=== PATIENT | female | born 1945 | race Caucasian/White ===

== ENCOUNTER 2023-01-10 14:34 | Emergency (ER) | payer MEDICARE, SELFPAY ==
--- NOTE | 2023-01-10 14:38 | ED_ITS ---
HPI - Abdominal Pain General Stated Complaint: ABD PAIN Time Seen by Provider: 01/10/23 15:00 Source: patient and RN notes reviewed Mode of arrival: ambulatory Limitations: no limitations History of Present Illness HPI narrative: 77-year-old presents with concern for bilateral lower abdominal pain that started suddenly yesterday. She reports normal bowel movements, she last had a bowel movement today. She denies nausea or vomiting. She denies fever. Denies dysuria, frequency, urgency. Reports history of diverticulitis MD elicited complaint: abdominal pain Related Data Home Medications Medication Instructions Recorded Confirmed No Home Medications 01/10/23 01/10/23 Allergies Allergy/AdvReac Type Severity Reaction Status Date / Time No Known Allergies Allergy Verified 01/10/23 15:01 Review of Systems Review of Systems: CONSTITUTIONAL: Denies malaise, chills, sweats, or fever. ENT: Denies rhinorrhea, congestion, sinus pain, otalgia or sore throat. CARDIOVASCULAR: Denies chest pain, palpitations, or edema. RESPIRATORY: Denies cough or dyspnea. GASTROINTESTINAL: Reports bilateral lower abdominal pain. Nausea, vomiting, diarrhea, bloody, or mucous stools. GENITOURINARY: Denies dysuria or hematuria. MUSCULOSKELETAL: Denies myalgia. NEUROLOGIC: Denies headache. All systems reviewed & are unremarkable except as noted in HPI and below PMFSH Comments At time of signature, agree with nursing past medical, surgical, social and family history. There is no relevant family history pertinent to the presenting complaint Exam Narrative: GENERAL: Well-appearing, well-nourished, and in no acute distress. HEAD: Normocephalic, atraumatic. EYES: PERRLA, conjunctivae clear, and EOMI. ENT: Nares clear. Mucous membranes moist. NECK: Supple. No lymphadenopathy CHEST: Speaks in full sentences. No respiratory distress. HEART: Regular rate and rhythm. ABDOMEN: Soft, flat, nondistended. Bilateral lower abdominal tenderness. no guarding, rebound tenderness, or rigidity. No pulsatile masses. Bowel sounds present in all four quadrants. No organomegaly. Periumbilical tenderness. Supra public tenderness, no distension. SKIN: Warm, dry, no rash. NEURO: Alert and oriented x3. PSYCH: Normal mood and affect Course Course Emergency Course: Patient is aware of, understands and agrees to be transferred to emergency department. Patient agrees to proceed directly to the emergency department. Portions of this record may have been created with voice recognition software Level of Care: Express Care Visit Vital Signs Vital signs: Reviewed. Transfer Transfered to: [place] Transportation: Other (Private vehicle) Transfer rationale: Abdominal pain Accepting physician: Delfina Transfer comments: Stable for transfer via private vehicle MDM - Abdominal Pain MDM Narrative Medical decision making narrative: Exam findings warrant further evaluation emergency department; patient is non- toxic appearing and is in no distress. Critical Care Time Critical Care Time Critical Care Time: No Discharge Plan Discharge Clinical Impression: Abdominal pain Patient Disposition: Acute Care Hospital Condition: Stable Follow-up/Referrals: PHYSICIAN,BRAKE REPAIR SUPERVISOR [Primary Care Provider] - Time of Disposition: 15:41
[2023-01-10 14:48] VITALS: BP 130/89; PULSE 104; RESP 16; TEMP 37.3; O2SAT 98
== END 2023-01-10 15:48 | disposition short-term general hospital (02) ==
PROVIDERS: Emergency Provider Nurse Practitioner
DX: R10.31 Right lower quadrant pain (principal); R10.32 Left lower quadrant pain
CPT/HCPCS: 81003; 99212; G0463

== ENCOUNTER 2023-01-10 16:09 | Emergency (ER) | payer MEDICARE, SELFPAY ==
--- NOTE | ~2023-01-10 | CT_ITS ---
EXAMINATION: CT abdomen pelvis w con DATE: 01/10/2023 19:22 INDICATION: Lower abdominal pain TECHNIQUE: Computed tomography (CT) of the abdomen and pelvis was performed with 100 cc Omnipaque 350 intravenous contrast. The dose-length product was 230.96 mGy-cm. Automated exposure control and iter ative reconstruction technique were employed. COMPARISON: None. FINDINGS: Lung bases are unremarkable. Heart size normal. No significant pleural or pericardial effus ion. Small hiatal hernia. Fatty infiltration of the liver. Gallbladder is present. The spleen, pancre as, adrenal glands and kidneys are unremarkable. No significant vascular abnormality. Colonic there i s thickening of the proximal sigmoid colon. There is mild surrounding inflammation, suspicious for ac [place] diverticulitis. Underlying mass cannot be excluded. Trace free fluid in the pelvis. Bladder is un remarkable. There is moderate lower thoracic and upper lumbar spondylosis. IMPRESSION: 1. Thickened proximal sigmoid colon with areas of decreased density and mild surrounding pericolonic inflammation, consistent with acute diverticulitis. Cannot exclude underlying mass.. Reviewed, dictated and finalized at location A. IMPRESSION: 1. Thickened proximal sigmoid colon with areas of decreased density and mild barlow rrounding pericolonic inflammation, consistent with acute diverticulitis. Canno t exclude underlying mass..
[2023-01-10 16:31] VITALS: BP 142/67; PULSE 98; RESP 16; O2SAT 99
[2023-01-10 16:46] LABS: Basophils Absolute Auto 0.1 K/mm3 (0.0-0.1); Basophils Percent Auto 0.5 % (0.2-1.2); Eosinophils Percent Auto 0.1 % (0-4.4); Hematocrit 44.2 % (37.0-47.0); Hemoglobin 14.6 g/dL (12.0-15.0); Immature Granulocyte Absolute 0.05 K/mm3 (0.00-0.031); Immature Granulocyte Percent A 0.3 % (0-0.5); Lymphocytes Absolute Auto 1.41 K/mm3 (0.9-3.2); Lymphocytes Percent Auto 9.7 % (18.3-44.2); Mean Corpuscular Volume 87.7 fl (80-100); Mean Platelet Volume 10.9 fl (7.4-10.4); Monocytes Absolute Auto 0.8 K/mm3 (0.1-0.6); Monocytes Percent Auto 5.4 % (2.6-8.5); Neutrophils Absolute Auto 12.2 K/mm3 (1.3-6.7); Platelet Count Result 240 k/mm3 (150-375); Red Blood Count 5.04 M/mm3 (4.2-5.4); Red Cell Distribution Width 13.3 % (11.5-14.5); White Blood Count 14.6 K/mm3 (4.5-10.0)
[2023-01-10 16:49] LABS: Appearance Urine Clear (Clear); Bilirubin Urine Negative (Negative); Blood Urine Negative (Negative); Color Urine Yellow (Yellow); Glucose Urine UA Negative (Negative); Ketones Urine Negative (Negative); Leukocyte Esterase Ur Negative LEU/UL (Negative); Nitrate Urine Negative (Negative); Protein Urine Negative (Negative); Specific Grav Ur 1.002 (1.001-1.035); Urobilinogen Urine 0.2 mg/dL (<2.0)
[2023-01-10 16:52] LABS: Add Urine Microscopic? NO
[2023-01-10 16:54] LABS: Alanine Aminotransferase 23 U/L (6-35); Albumin Level 4.3 g/dL (3.5-5.1); Alkaline Phosphatase 114 U/L (38-126); Anion Gap 9 mmol/L (8-16); Aspartate Amino Transferase 29 U/L (14-36); Bilirubin,Total 1.2 mg/dL (0.2-1.3); Blood Urea Nitrogen 11 mg/dL (7-17); Calcium 8.8 mg/dL (8.4-10.2); Carbon Dioxide 26 mmol/L (22-30); Chloride 98 mmol/L (98-107); Estimated CRCL calculation 42 ml/min; Estimated Glomerular Filt Rate > 60; Glucose 113 mg/dL (65-110); Lipase 73 U/L (23-300); Potassium 3.9 mmol/L (3.4-5.0); Sodium 133 mmol/L (137-145)
[2023-01-10 18:33] VITALS: BP 119/68; PULSE 79; RESP 15; O2SAT 99
--- NOTE | 2023-01-10 19:07 | ED.GENADULT ---
HPI - General Adult General Chief complaint: Abdominal Pain Stated complaint: abd pain Time Seen by Provider: 01/10/23 18:39 History of Present Illness HPI narrative: 77-year-old healthy female with a history of diverticulitis here for evaluation of lower abdominal pain over the past day and a half. Patient states that the pain is present in her left lower quadrant and her right lower quadrant. No diarrhea, constipation, nausea, vomiting, fevers, chills, blood in her stools, dysuria, blood in her urine. She is never had a pain like this in the past. She is unsure her quality of the pain. Has not taken any medicine for the pain. She believes she pulled a muscle because she was picking up her grandkids. Currently pain-free. Related Data Allergies Allergy/AdvReac Type Severity Reaction Status Date / Time No Known Allergies Allergy Verified 01/10/23 15:01 Review of Systems Review of Systems: Gen: Denies fevers or chills Eyes: Denies eye pain or visual change ENT: Denies congestion Respiratory: Denies shortness of breath or cough CV: Denies chest pain or palpitations GI: Reports abdominal pain. Denies nausea, emesis or diarrhea : denies burning, urgency, frequency or hematuria Musculoskeletal: Denies back pain or muscle pain Neuro: Denies numbness, tingling, weakness or focal weakness Skin: Denies rash Except as documented, all other systems reviewed and negative Exam Narrative: APPEARANCE: Well appearing, no pain in distress, well-nourished. Head: Normocephalic and atraumatic. EYES: PERRLA/EOMI, conjunctivae clear NOSE: No nasal drainage EARS: External ear normal in appearance THROAT: Oropharynx is clear. Mucous membranes are moist. NECK: Supple. No adenopathy, no masses. RESPIRATORY: Airway patent, respirations nonlabored. Clear to auscultation bilaterally, no rales, rhonchi, wheezing. CARDIOVASCULAR: Regular rate and rhythm without murmurs, rubs, or gallops. ABDOMINAL: Normoactive bowel sounds. Soft, nontender, nondistended. No rebound tenderness or guarding. MUSCULOSKELETAL: Extremities are warm and well-perfused. Moves all extremities well. No edema. NEURO: Normal speech. No focal neurologic deficits. SKIN: Skin is warm and dry. No rashes. PSYCHIATRIC: Normal affect/mood. Course Vital Signs Vital signs: Vital Signs Pulse Rate 98 01/10/23 16:31 Respiratory Rate 16 01/10/23 16:31 Blood Pressure 142/67 H 01/10/23 16:31 Pulse Oximetry 99 01/10/23 16:31 Oxygen Delivery Room Air 01/10/23 16:31 Pulse Rate 79 01/10/23 18:33 Respiratory Rate 15 01/10/23 18:33 Blood Pressure 119/68 01/10/23 18:33 Pulse Oximetry 99 01/10/23 18:33 Oxygen Delivery Room Air 01/10/23 16:31 Medical Decision Making MDM Narrative Medical decision making narrative: 77-year-old female here for evaluation of lower abdominal pain for the past several days. Patient is nontoxic in appearance and has normal vital signs. No significant abdominal tenderness on exam. She has normal labs. CT with evidence of uncomplicated diverticulitis which would explain her pain, although commenting that they cannot exclude underlying mass. Patient was informed of these findings and need for GI follow-up; understands she will need a colonoscopy for further evaluation. We will send home with antibiotics and clear liquid diet. We discussed return precautions and she voiced understanding. Vital Signs Vital Signs: Vital Signs Pulse Rate 98 01/10/23 16:31 Respiratory Rate 16 01/10/23 16:31 Blood Pressure 142/67 H 01/10/23 16:31 Pulse Oximetry 99 01/10/23 16:31 Oxygen Delivery Room Air 01/10/23 16:31 Pulse Rate 79 01/10/23 18:33 Respiratory Rate 15 01/10/23 18:33 Blood Pressure 119/68 01/10/23 18:33 Pulse Oximetry 99 01/10/23 18:33 Oxygen Delivery Room Air 01/10/23 16:31 Lab Data 01/10/23 16:39 01/10/23 16:39 Labs: Lab Results 01/10/23 01/10/23 0
[2023-01-10 19:20] LABS: Lactic Acid Reflex 1.4 mmol/L (0.7-2.0)
== END 2023-01-10 20:10 | disposition home or self-care (01) ==
PROVIDERS: Emergency Medicine; Emergency Provider Physician Assistant
DX: K57.32 Diverticulitis of large intestine without perforation or abscess without bleeding (principal)
CPT/HCPCS: 36415; 74177; 80053; 81003; 83605; 83690; 85025; 99284; Q9967

== ENCOUNTER → 2023-02-02 08:26 | Outpatient (CLI) | payer MEDICARE, SELFPAY ==
--- NOTE | ~2023-02-02 | US_ITS ---
EXAMINATION: US carotid duplex BI DATE: 02/02/2023 08:43 INDICATION: Carotid stenosis TECHNIQUE: Grayscale, color Doppler, and pulsed Doppler images of the cervical carotid arteries were obtained. The degree of vessel stenosis is placed in one of the following categories: normal, <50%, 5 0-69%, >=70% but less than near-occlusion, near-occlusion, or total occlusion. Note that percent sten osis relative to normal distal artery lumen diameter is indirectly measured from velocity measurement s as described by Ender, et al. Radiology 2003; 229:340-346. Notes: Normal: Peak systolic velocity <125 centimeters/sec and no plaque <50%. Peak systolic velocity <125 ( EDV <40; ICA/CCA PSV ratio <2.0; used these factors only a tandem lesions or low cardiac output or co ntralateral disease) 50-69 %: PSV 125-230 (EDV 40-100; ratio 2-4) >= 70% but less than near occlusion: PSV greater than 230 (EDV > 100; ratio> 4.0) Near Occlusion: PSV that is variable; markedly narrowed lumen Occlusion: Absent flow on color/spectral Doppler and no lumen on tolbert scale. COMPARISON: None. FINDINGS: RIGHT: The right common carotid artery (CCA) peak systolic velocity (PSV) is 76 cm/s. The right internal car otid artery (ICA) PSV is 94 cm/s. The right ICA end-diastolic velocity (EDV) is 20 cm/s. The right IC A/CCA PSV ratio is 1.2. The external carotid artery (ECA) PSV is 90 cm/s. There is antegrade flow in the right vertebral artery. LEFT: The left CCA PSV is 104 cm/s. The left ICA PSV is 102 cm/s. The left ICA EDV is 20 cm/s. The left ICA /CCA PSV ratio is 1.0. The ECA PSV is 78 cm/s. There is antegrade flow in the left vertebral artery. IMPRESSION: 1. Less than 50% stenosis in the right internal carotid artery by sonographic criteria. 2. Less than 50% stenosis in the left internal carotid artery by sonographic criteria. Reviewed, dictated and finalized at location L. IMPRESSION: 1. Less than 50% stenosis in the right internal carotid artery by sonographic [place]. 2. Less than 50% stenosis in the left internal carotid artery by sonographic lino quiroz.
== END ==
PROVIDERS: PCP Internal Medicine; Visit Provider Clinical Nurse Specialist
DX: I65.23 Occlusion and stenosis of bilateral carotid arteries (principal); R09.89 Other specified symptoms and signs involving the circulatory and respiratory systems
CPT/HCPCS: 93880

== ENCOUNTER 2023-02-02 08:42 | Outpatient (CLI) | payer MEDICARE, SELFPAY ==
[2023-02-02 19:33] LABS: Alanine Aminotransferase 23 U/L (6-35); Albumin Level 4.2 g/dL (3.5-5.1); Alkaline Phosphatase 129 U/L (38-126); Anion Gap 5 mmol/L (8-16); Aspartate Amino Transferase 39 U/L (14-36); Bilirubin,Total 0.4 mg/dL (0.2-1.3); Blood Urea Nitrogen 20 mg/dL (7-17); Calcium 8.9 mg/dL (8.4-10.2); Carbon Dioxide 29 mmol/L (22-30); Chloride 104 mmol/L (98-107); Cholesterol 287 mg/dL (0-200); Estimated Glomerular Filt Rate > 60; Glucose 81 mg/dL (65-110); HDL Direct 46 mg/dL; Potassium 4.4 mmol/L (3.4-5.0); Sodium 138 mmol/L (137-145); Triglycerides 180 mg/dL (<150)
[2023-02-02 19:34] LABS: Basophils Absolute Auto 0.1 K/mm3 (0.0-0.1); Basophils Percent Auto 1.4 % (0.2-1.2); Eosinophils Absolute Auto 0.1 K/mm3 (0-0.3); Eosinophils Percent Auto 1.8 % (0-4.4); Hematocrit 45.5 % (37.0-47.0); Hemoglobin 14.7 g/dL (12.0-15.0); Immature Granulocyte Absolute 0.01 K/mm3 (0.00-0.031); Immature Granulocyte Percent A 0.2 % (0-0.5); Lymphocytes Absolute Auto 2.55 K/mm3 (0.9-3.2); Lymphocytes Percent Auto 40.7 % (18.3-44.2); Mean Corpuscular HGB Conc 32.3 g/dl (32-36); Mean Corpuscular Hemoglobin 28.4 pg (26-34); Mean Platelet Volume 12.5 fl (7.4-10.4); Monocytes Absolute Auto 0.5 K/mm3 (0.1-0.6); Monocytes Percent Auto 8.5 % (2.6-8.5); Neutrophils Percent Auto 47.4 % (45.5-73.1); Platelet Count Result 259 k/mm3 (150-375); Red Blood Count 5.17 M/mm3 (4.2-5.4); Red Cell Distribution Width 13.4 % (11.5-14.5); White Blood Count 6.3 K/mm3 (4.5-10.0)
[2023-02-02 19:44] LABS: LDL Cholesterol Direct 201 mg/dL
[2023-02-02 21:39] LABS: Hemoglobin A1C 5.8 % (<5.7)
== END 2023-02-02 08:43 | disposition home or self-care (01) ==
LOC: ANHGOSHLAB 08:43
PROVIDERS: PCP Internal Medicine; Visit Provider Clinical Nurse Specialist
DX: E78.5 Hyperlipidemia, unspecified (principal); Z13.228 Encounter for screening for other metabolic disorders; R73.9 Hyperglycemia, unspecified; R41.3 Other amnesia
CPT/HCPCS: 36415; 80053; 80061; 82607; 83036; 84443; 85025

== ENCOUNTER 2023-04-28 10:43 | Outpatient (CLI) | payer MEDICARE, SELFPAY ==
[2023-04-28 14:40] LABS: Alanine Aminotransferase 26 U/L (6-35); Albumin Level 4.1 g/dL (3.5-5.1); Alkaline Phosphatase 94 U/L (38-126); Anion Gap 4 mmol/L (8-16); Aspartate Amino Transferase 53 U/L (14-36); Bilirubin,Total 0.8 mg/dL (0.2-1.3); Blood Urea Nitrogen 10 mg/dL (7-17); Calcium 9.1 mg/dL (8.4-10.2); Carbon Dioxide 30 mmol/L (22-30); Chloride 103 mmol/L (98-107); Cholesterol 186 mg/dL (0-200); Estimated Glomerular Filt Rate > 60; Glucose 94 mg/dL (65-110); HDL Direct 52 mg/dL; Potassium 4.2 mmol/L (3.4-5.0); Sodium 137 mmol/L (137-145); Triglycerides 137 mg/dL (<150)
[2023-04-28 14:51] LABS: LDL Cholesterol Direct 96 mg/dL
== END 2023-04-28 10:44 | disposition home or self-care (01) ==
LOC: ANHGOSHLAB 10:45
PROVIDERS: PCP Internal Medicine; Visit Provider Clinical Nurse Specialist
DX: E78.5 Hyperlipidemia, unspecified (principal)
CPT/HCPCS: 36415; 80053; 80061

== ENCOUNTER 2024-05-20 13:39 | Outpatient (NON) | payer MEDICARE, SELFPAY ==
[2024-05-20 20:04] LABS: Add Urine Microscopic? YES; Appearance Urine Clear (Clear); Bacteria Urine None Seen /hpf; Bilirubin Urine Negative (Negative); Blood Urine Negative (Negative); Color Urine Yellow (Yellow); Glucose Urine UA Negative (Negative); Ketones Urine Negative (Negative); Leukocyte Esterase Ur 2+ LEU/UL (Negative); Need Manual Microscopic Reviewed; Nitrate Urine Negative (Negative); Non Pathogenic Casts 0-2; Protein Urine Negative (Negative); RBC Urine 0-2 /hpf (0-2); Specific Grav Ur 1.016 (1.001-1.035); Squamous Epithelial Cell Urine Moderate /hpf (Few); Urobilinogen Urine 0.2 mg/dL (<2.0); WBC Urine 0-5 /hpf (0-3); pH Urine 5.5 (5.0-9.0)
== END 2024-05-20 13:40 | disposition home or self-care (01) ==
PROVIDERS: PCP Nurse Practitioner; Visit Provider Clinical Nurse Specialist
DX: R39.9 Unspecified symptoms and signs involving the genitourinary system (principal)
CPT/HCPCS: 81001

== ENCOUNTER 2024-07-04 09:00 | Outpatient (CLI) | payer MEDICARE, SELFPAY ==
[2024-07-04 14:43] LABS: Basophils Absolute Auto 0.1 K/mm3 (0.0-0.1); Basophils Percent Auto 0.9 % (0.2-1.2); Eosinophils Absolute Auto 0.1 K/mm3 (0-0.3); Eosinophils Percent Auto 1.1 % (0-4.4); Hematocrit 44.7 % (37.0-47.0); Hemoglobin 14.6 g/dL (12.0-15.0); Immature Granulocyte Absolute 0.02 K/mm3 (0.00-0.031); Immature Granulocyte Percent A 0.2 % (0-0.5); Lymphocytes Absolute Auto 1.79 K/mm3 (0.9-3.2); Lymphocytes Percent Auto 21.8 % (18.3-44.2); Mean Corpuscular HGB Conc 32.7 g/dl (32-36); Mean Corpuscular Hemoglobin 28.7 pg (26-34); Mean Platelet Volume 11.5 fl (7.4-10.4); Monocytes Absolute Auto 0.5 K/mm3 (0.1-0.6); Monocytes Percent Auto 5.6 % (2.6-8.5); Neutrophils Absolute Auto 5.8 K/mm3 (1.3-6.7); Neutrophils Percent Auto 70.4 % (45.5-73.1); Platelet Count Result 251 k/mm3 (150-375); Red Blood Count 5.08 M/mm3 (4.2-5.4); Red Cell Distribution Width 13.5 % (11.5-14.5); White Blood Count 8.2 K/mm3 (4.5-10.0)
[2024-07-04 15:00] LABS: Alanine Aminotransferase 18 U/L (6-35); Albumin Level 4.2 g/dL (3.5-5.1); Alkaline Phosphatase 97 U/L (38-126); Anion Gap 7 mmol/L (4-12); Aspartate Amino Transferase 35 U/L (14-36); Bilirubin,Total 0.7 mg/dL (0.2-1.3); Blood Urea Nitrogen 16 mg/dL (7-17); Calcium 9.2 mg/dL (8.4-10.2); Carbon Dioxide 30 mmol/L (22-30); Chloride 104 mmol/L (98-107); Cholesterol 301 mg/dL (0-200); Estimated Glomerular Filt Rate 60; Glucose 92 mg/dL (65-110); HDL Direct 56 mg/dL; Potassium 4.2 mmol/L (3.4-5.0); Sodium 141 mmol/L (137-145); Triglycerides 192 mg/dL (<150)
[2024-07-04 15:11] LABS: LDL Cholesterol Direct 194 mg/dL
== END 2024-07-04 09:01 | disposition home or self-care (01) ==
LOC: ANHGOSHLAB 09:02
PROVIDERS: PCP Nurse Practitioner; Visit Provider Clinical Nurse Specialist
DX: E78.5 Hyperlipidemia, unspecified (principal); F41.3 Other mixed anxiety disorders; Z13.228 Encounter for screening for other metabolic disorders; R09.82 Postnasal drip
CPT/HCPCS: 36415; 80053; 80061; 84443; 85025

== ENCOUNTER 2024-08-14 11:00 | Observation (INO) | payer MEDICARE, SELFPAY ==
[2024-08-14] VITALS (32 sets, daily range): BP systolic 136–200; BP diastolic 50–96; PULSE 73–96; RESP 8–29; TEMP 36.6–36.7; O2SAT 95–100; BMI 23.0
--- NOTE | ~2024-08-14 | MR_ITS ---
EXAMINATION: MR lumbar spine wo con DATE: 08/15/2024 16:23 INDICATION: Back pain. Fall. TECHNIQUE: Magnetic resonance imaging (MRI) of the lumbar spine was performed without intravenous con trast. Sequences included sagittal T2-weighted FSE, sagittal T2-weighted FS FSE, sagittal T1-weighted FSE, and axial T2-weighted FSE. COMPARISON: CT lumbar spine 08/14/24 FINDINGS: There is 8 degrees dextrocurvature of lumbar spine. There is 3 mm anterolisthesis of L4 on L5. There is mild chronic anterior wedging of T11 vertebral body. There is mildly decreased disc heig ht at T11-T12 and T12-L1, moderately decreased disc height at L1-L2, and mildly decreased disc height at L5-S1. The distal spinal cord signal intensity is normal. The conus medullaris is at L1-L2. The following disc levels are specifically discussed: L1-L2: The disc is bulging. There is mild bilateral facet joint osteoarthritis. There is mild left ne ural foraminal stenosis. There is mild central canal stenosis. L2-L3: The disc is bulging. There is mild bilateral facet joint osteoarthritis. There is mild bilater al neural foraminal stenosis. There is mild central canal stenosis. L3-L4: The disc is bulging and has an annular fissure. There is severe right and moderate left facet joint osteoarthritis. There is mild bilateral neural foraminal stenosis. There is mild central canal stenosis. L4-L5: The disc is bulging and has an annular fissure. There is severe bilateral facet joint osteoart hritis. There is mild bilateral neural foraminal stenosis. There is mild central canal stenosis. L5-S1: The disc is bulging and has an annular fissure. There is severe bilateral facet joint osteoart hritis. There is mild bilateral neural foraminal stenosis. There is mild central canal stenosis. IMPRESSION: 1. Moderate lumbar spondylosis. Reviewed, dictated and finalized at location A. TRUCTION TEACHER
--- NOTE | ~2024-08-14 | CT_ITS ---
History: Fall PROCEDURE: CT cervical spine without intravenous contrast. COMPARISON: None TECHNIQUE: Multiple contiguous axial images of the cervical spine were performed without the administration of i ntravenous contrast. DLP: 148 mGy-cm FINDINGS: Straightening and slight reversal of the normal curvature of the cervical spine is identified, likely muscular in origin. No acute fractures are present. Osteophyte formation and disc space narrowing is noted, along with significant facet arthropathy. Significant degenerative disease is identified The bilateral lung apices are unremarkable. Cerumen within the canals No soft tissue abnormality is present. The airway is patent. Impression: Degenerative disease, without acute fracture, as detailed above. Reviewed, dictated and finalized at location A. OUT OPERATOR Impression: Degenerative disease, without acute fracture, as detailed above.
--- NOTE | ~2024-08-14 | CT_ITS ---
CT lumbar spine wo con Ordering provider: Man Sanchez MD History: 79 years Female with . Lower back pain, found down . Comparison: None. Technique: CT lumbar spine without contrast. Automated exposure control and iterative reconstruction technique were employed. The dose-length product was 602.78 mGy-cm. FINDINGS: VERTEBRAE: Normal height and alignment. No subluxation or visible acute fracture. A hemangioma is see n in L5. DISC SPACES: . Slight narrowing of the disc L2-3. Multilevel facet joint disease. T12-L1: No stenosis. Mild diffuse disc bulge. L1-L2: No stenosis. Mild diffuse disc bulge. L2-L3: No stenosis. Mild diffuse disc bulge with bilateral narrowing of the foramina. No definite ro ot compression. L3-L4: No stenosis. Diffuse disc bulge. Narrowing of the foramina with no definite root compression. L4-L5: Mild spinal canal stenosis secondary to broad based disc bulge, facet arthropathy, and ligame ntum flavum hypertrophy. L5-S1: No stenosis. Diffuse disc bulge. Narrowing of the right foramen and nerve root compression. PARASPINOUS SOFT TISSUES: Mild atheromatous disease of the abdominal aorta. Stone in the left kidney lower pole. Mild renal fullness bilaterally. IMPRESSION: No acute osseous abnormalities. Multilevel degenerative disc disease with variable degrees of spinal canal stenosis, intervertebral f oraminal narrowing and with nerve roots compression. Left kidney stone. Reviewed, dictated and finalized at location A. ILE PROC TECH IMPRESSION: No acute osseous abnormalities. Multilevel degenerative disc disease with variable degrees of spinal canal sten osis, intervertebral foraminal narrowing and with nerve roots compression. Left kidney stone.
--- NOTE | ~2024-08-14 | CT_ITS ---
EXAMINATION: CT pelvis wo con DATE: 08/14/2024 19:31 INDICATION: Pelvic fracture. TECHNIQUE: Computed tomography (CT) of the pelvis was performed without intravenous contrast. Automat ed exposure control and iterative reconstruction technique were employed. The dose-length product was 189.06 mGy-cm. COMPARISON: Pelvis radiograph 08/14/2024. FINDINGS: There is diverticulosis of the colon without evidence of diverticulitis. There is no ascite s. Alignment is normal. No fracture. There is mild osteoarthritis of the hips. There is moderate lowe r lumbar spondylosis. IMPRESSION: 1. No fracture. Reviewed, dictated and finalized at location A. UCTOR AND ENGINEER IMPRESSION: 1. No fracture.
--- NOTE | ~2024-08-14 | XR_ITS ---
XR chest 1V Ordering provider: Man Sanchez MD History: 79 years Female with . AMS . Comparison: None. FINDINGS: MEDIASTINUM: The cardiac silhouette is not enlarged. LUNGS: No infiltrates, effusions or pneumothorax. Emphysematous changes. OTHER: No free air under the diaphragm. IMPRESSION: No acute cardiopulmonary pathology. Reviewed, dictated and finalized at location A. F ASSISTANT
--- NOTE | ~2024-08-14 | XR_ITS ---
SINGLE AP VIEW PELVIS Ordering provider: Man Sanchez MD History: . AMS . Comparison: None. FINDINGS: BONES: No acute fracture or dislocation. HIP JOINT SPACES: Normal. SACROILIAC JOINT SPACES/LUMBAR SPINE: The sacroiliac joint spaces are normal. Mild degenerative colmenares es of the visualized lower lumbar spine. PUBIC SYMPHYSIS: Normal. SOFT TISSUES: Normal. IMPRESSION: No acute osseous abnormality pelvis. Reviewed, dictated and finalized at location A. ETING TECHNOLOGY COORDINATOR
--- NOTE | ~2024-08-14 | CT_ITS ---
CT brain wo con Ordering provider: Man Sanchez MD History: 79 years Female with . Fall . Comparison: None. Technique: CT of the head without contrast. Radiation Reduction technique utilized.The dose-length product was 681 mGy-cm. FINDINGS: BRAIN PARENCHYMA AND CSF SPACES: Mild leukoaraiosis and diffuse cortical atrophy. Mild atheromatous d isease. No midline shift, mass effect or hemorrhage. The brain parenchyma and CSF spaces are otherwi se normal. Empty sella turcica. VISUALIZED PARANASAL SINUSES: Well aerated. MASTOIDS: Well aerated. BONES: The bones appear intact. SOFT TISSUES: Visualized nasopharynx is normal. Superficial soft tissues are normal. IMPRESSION: No acute intracranial findings. Reviewed, dictated and finalized at location A. STANT FILM EDITOR
--- NOTE | 2024-08-14 11:34 | ECG_ITS ---
Test Date: 2024-08-14 11:53:01 Measurements Intervals [place] Rate: 75 P: 84 NH: 204 QRS: 41 QRSD: 74 T: 52 QT: 362 QTc: 406 Interpretive Statements SINUS RHYTHM LOW QRS VOLTAGE IN PRECORDIAL LEADS BASELINE ARTIFACT- I, II, III, AVR, AVL, AVF, V1-V6 BORDERLINE ECG No previous ECG available for comparison Electronically Signed On 08-14-2024 11:59:08 CHIMNEY BUILDER by Jerome Knight D.O.
[2024-08-14 12:00] LABS: Fractional Inspired Oxygen 21 %; HCO3 VBG 25.1 mEq/l (24.0-30.0); PCO2 VBG 38.5 mmHg (42.0-48.0); PO2 VBG 29.4 mmHg (35.0-45.0)
[2024-08-14 12:01] LABS: pH VBG 7.432 (7.300-7.400)
[2024-08-14] MEDS: SODIUM CHLORIDE 0.9% IV 1,000 ML 999 ML IV CONT (12:03)
[2024-08-14 12:16] LABS: Basophils Absolute Auto 0.1 K/mm3 (0.0-0.1); Basophils Percent Auto 1.1 % (0.2-1.2); Eosinophils Absolute Auto 0.1 K/mm3 (0-0.3); Eosinophils Percent Auto 0.6 % (0-4.4); Hematocrit 44.7 % (37.0-47.0); Hemoglobin 14.8 g/dL (12.0-15.0); Immature Granulocyte Absolute 0.05 K/mm3 (0.00-0.031); Immature Granulocyte Percent A 0.6 % (0-0.5); Lymphocytes Absolute Auto 1.75 K/mm3 (0.9-3.2); Lymphocytes Percent Auto 20.8 % (18.3-44.2); Mean Corpuscular HGB Conc 33.1 g/dl (32-36); Mean Corpuscular Hemoglobin 28.5 pg (26-34); Mean Platelet Volume 10.5 fl (7.4-10.4); Monocytes Absolute Auto 0.4 K/mm3 (0.1-0.6); Monocytes Percent Auto 4.4 % (2.6-8.5); Neutrophils Absolute Auto 6.1 K/mm3 (1.3-6.7); Neutrophils Percent Auto 72.5 % (45.5-73.1); Platelet Count Result 272 k/mm3 (150-375); Red Cell Distribution Width 12.8 % (11.5-14.5); White Blood Count 8.4 K/mm3 (4.5-10.0)
[2024-08-14 12:26] LABS: Alanine Aminotransferase 31 U/L (6-35); Albumin Level 4.2 g/dL (3.5-5.1); Alkaline Phosphatase 104 U/L (38-126); Anion Gap 5 mmol/L (4-12); Aspartate Amino Transferase 37 U/L (14-36); Bilirubin,Total 0.7 mg/dL (0.2-1.3); Blood Urea Nitrogen 18 mg/dL (7-17); Calcium 9.3 mg/dL (8.4-10.2); Carbon Dioxide 26 mmol/L (22-30); Chloride 105 mmol/L (98-107); Estimated CRCL calculation 57 ml/min; Estimated Glomerular Filt Rate 60; Glucose 101 mg/dL (65-110); Lactic Acid Reflex 1.7 mmol/L (0.7-2.0); Lipase 123 U/L (23-300); Magnesium 2.3 mg/dL (1.6-2.3); Phosphorus 2.9 mg/dL (2.5-4.5); Sodium 136 mmol/L (137-145)
[2024-08-14 12:33] LABS: INR 0.9
[2024-08-14 12:34] LABS: Partial Thromboplastin Time 27.9 Seconds (22.3-36.8)
[2024-08-14 12:37] LABS: Troponin I < 0.012 ng/mL (0.000-0.034)
[2024-08-14 13:38] LABS: Add Urine Microscopic? NO; Appearance Urine Clear (Clear); Bilirubin Urine Negative (Negative); Blood Urine Negative (Negative); Color Urine Yellow (Yellow); Glucose Urine UA Negative (Negative); Ketones Urine Negative (Negative); Leukocyte Esterase Ur Negative LEU/UL (Negative); Nitrate Urine Negative (Negative); Protein Urine Negative (Negative); Urobilinogen Urine 0.2 mg/dL (<2.0); pH Urine 7.5 (5.0-9.0)
--- NOTE | 2024-08-14 15:04 | ECG_ITS ---
Test Date: 2024-08-14 15:07:08 Measurements Intervals [place] Rate: 102 P: 72 NE: 195 QRS: 66 QRSD: 69 T: 72 QT: 330 QTc: 431 Interpretive Statements SINUS TACHYCARDIA LOW QRS VOLTAGE IN PRECORDIAL LEADS BASELINE ARTIFACT- I, II, III, AVR, AVL, AVF BORDERLINE ECG Compared to ECG 08/14/2024 11:53:01 HEART RATE HAS INCREASED Electronically Signed On 08-14-2024 15:43:35 PEST CONTROL OPERATOR by Jerome Knight D.O.
[2024-08-14 15:36] LABS: Troponin I < 0.012 ng/mL (0.000-0.034)
[2024-08-14] MEDS: ACETAMINOPHEN 500 MG TABLET 1000 MG PO ×2 (18:05→23:16)
[2024-08-14] MEDS: HYDROmorphone HCL INJ (*CRX) 1 MG/ML SYR 0.5 MG IV PUSH (18:06)
[2024-08-14] MEDS: KETOROLAC 15 MG/ML VIAL (*BKC) IV PUSH (18:06)
--- NOTE | 2024-08-14 18:36 | ED.GENADULT ---
HPI - General Adult General Chief complaint: Extremity Injury, Lower Stated complaint: hip shortening/rotated Time Seen by Provider: 08/14/24 19:34 History of Present Illness HPI narrative: this is a 79-year-old female with severe dementia presenting for lower back pain. Patient lives with her 2 sons. She was seen walking into the bathroom. She then crawled out on floor complaining of back pain. They then brought her to the hospital for evaluation. The patient herself does not know if she has fallen or not. Her only complaint is pain in her lower back. Patient has been complaining of back pain for several weeks. She has received Excedrin at home with minimal relief. Patient denies lower extremity weakness, difficulty urinating or bowel incontinence. Patient denies fevers chills chest pain difficulty breathing abdominal pain urinary symptoms Related Data Home Medications Medication Instructions Recorded Confirmed acetaminophen 650 mg PO PRN PRN Pain (Scale 08/14/24 08/14/24 Score 1-3) Allergies Allergy/AdvReac Type Severity Reaction Status Date / Time No Known Allergies Allergy Verified 07/04/24 08:12 [facility] Past Medical History Medical History Carotid bruit Encounter to establish care History of carotid stenosis Hyperglycemia Post-nasal drip Screening for metabolic disorder UTI symptoms Family History Family History (Updated 08/14/24 @ 22:46 by Corie Wesley RN) Mother Dementia Father Cerebrovascular accident Social History Social History Smoking status: Never smoker Alcohol intake: never Substance use: never Substance use type: does not use Do You Feel Safe in your Home?: Yes Lack of Transportation: No Lack of Food: Never True Current Housing: I Have Housing Concerned About Future Housing: No Difficulty Paying Gas/Electric Bills: No Difficulty Paying for Meds: No Currently Unemployed: No Education: Master's Degree or Higher Difficulty w/ Childcare or Family Care: No Spiritual care concerns: No Exam Narrative: APPEARANCE: No apparent distress. A&O x1 Head: atraumatic. EYES: EOMI, NOSE: Atraumatic NECKBACK: No midline spinal tenderness, tenderness palpation over the left paralumbar muscles and left gluteal muscles. RESPIRATORY: No increased rate of breathing , CTAB CARDIOVASCULAR: RRR, No peripheral edema ABDOMINAL: Non-distended soft nontender no guarding rebound MUSCULOSKELETAl: head to toe trauma exam revealed no obvious deformities or areas of tenderness NEURO: Alert. Moving 4/4 extremities SKIN:: Warm, dry. Normal color PSYCHIATRIC: Normal affect Course Vital Signs Vital signs: Vital Signs Temperature 98.1 F 08/14/24 11:01 Pulse Rate 73 08/14/24 11:01 Respiratory Rate 13 08/14/24 11:01 Blood Pressure 161/70 H 08/14/24 11:01 Pulse Oximetry 100 08/14/24 11:01 Oxygen Delivery Room Air 08/14/24 11:01 Temperature 97.7 F 08/15/24 04:00 Pulse Rate 74 08/15/24 04:00 Respiratory Rate 20 08/15/24 04:00 Blood Pressure 165/69 H 08/15/24 04:00 Pulse Oximetry 100 08/15/24 04:00 Oxygen Delivery Room Air 08/14/24 11:01 Medical Decision Making MDM Narrative Medical decision making narrative: -Course: 79-year-old female with severe dementia presenting with lower back pain. Broad trauma and metabolic workup obtained as she cannot provide any meaningful history. Workup largely unremarkable. No evidence of infection. No traumatic injuries. Lumbar CT significant degenerative changes. Patient received pain medication. We attempted to ambulate the patient but she was unable to walk due to severe pain. CT pelvis added to evaluate for occult pelvic fracture which was negative. I spoke with patient's family length in regards to her deteriorating mental and physical status and they were concerned no longer able to care for safely home. Patient will be admitted the hospital for PT / OT and possible placement. -DDX includes but is not limited to: ICH, bony injury, soft tissue injury, UTI sepsis dehydration pneumonia viral illness -Co-morbidities complicating care: severe dementia -Social determinants of health: lives with family, denies use drugs or alcohol -Hx from independent Sources: family at bedside -Independent interpretation of studies: Labs and imaging reviewed -Interventions: Dilaudid, Toradol, Tylenol -Shared decision making / Disposition:admitted Vital Signs Vital Signs: Vital Signs Temperature 98.1 F 08/14/24 11:01 Pulse Rate 73 08/14/24 11:01 Respiratory Rate 13 08/14/24 11:01 Blood Pressure 161/70 H 08/14/24 11:01 Pulse Oximetry 100 08/14/24 11:01 Oxygen Delivery Room Air 08/14/24 11:01 Temperature 97.7 F 08/15/24 04:00 Pulse Rate 74 08/15/24 04:00 Respiratory Rate 20 08/15/24 04:00 Blood Pressure 165/69 H 08/15/24 04:00 Pulse Oximetry 100 08/15/24 04:00 Oxygen Delivery Room Air 08/14/24 11:01 Lab Data 08/14/24 12:05 08/14/24 12:05 Labs: Lab Results 08/14/24 08/14/24 08/14/24 Range/Units 12:05 13:26 15:09 WBC 8.4 (4.5-10.0) K/mm3 RBC 5.20 (4.2-5.4) M/mm3 Hgb 14.8 (12.0-15.0) g/dL Hct 44.7 (37.0-47.0) % MCV 86.0 (80-100) fl MCH 28.5 (26-34) pg MCHC 33.1 (32-36) g/dl RDW 12.8 (11.5-14.5) % Plt Count 272 (150-375) k/mm3 MPV 10.5 H (7.4-10.4) fl Immature Gran % (Auto) 0.6 H (0-0.5) % Neut % (Auto) 72.5 (45.5-73.1) % Lymph % (Auto) 20.8 (18.3-44.2) % [place] % (Auto) 4.4 (2.6-8.5) % Eos % (Auto) 0.6 (0-4.4) % Baso % (Auto) 1.1 (0.2-1.2) % Lymph # (Auto) 1.75 (0.9-3.2) K/mm3 [place] # (Auto) 0.4 (0.1-0.6) K/mm3 Eos # (Auto) 0.1 (0-0.3) K/mm3 Baso # (Auto) 0.1 (0.0-0.1) K/mm3 Abs Immat Gran (auto) 0.05 H (0.00-0.031) K/mm3 Absolute Neuts (auto) 6.1 (1.3-6.7) K/mm3 Absolute Nucleated RBC 0.000 (0.0-0.012) K/mm3 Nucleated RBC % 0.0 (0.0-0.2) % PT 13.0 (11.1-14.7) Seconds INR 0.9 APTT 27.9 (22.3-36.8) Seconds Sodium 136 L (137-145) mmol/L Potassium 4.0 (3.4-5.0) mmol/L Chloride 105 (98-107) mmol/L Carbon Dioxide 26 (22-30) mmol/L Anion Gap 5 (4-12) mmol/L BUN 18 H (7-17) mg/dL Creatinine 0.90 (0.7-1.0) mg/dL Estim Creat Clear Calc 57 ml/min Estimated GFR 60 (59 - ) Glucose 101 (65-110) mg/dL Lactic Acid 1.7 (0.7-2.0) mmol/L Calcium 9.3 (8.4-10.2) mg/dL Phosphorus 2.9 (2.5-4.5) mg/dL Magnesium 2.3 (1.6-2.3) mg/dL Total Bilirubin 0.7 (0.2-1.3) mg/dL AST 37 H (14-36) U/L ALT 31 (6-35) U/L Alkaline Phosphatase 104 (38-126) U/L Troponin I < 0.012 < 0.012 (0.000-0.034) ng/mL Total Protein 8.0 (6.3-8.2) g/dL Albumin 4.2 (3.5-5.1) g/dL Lipase 123 (23-300) U/L TSH (Reflex) 3.280 (0.465-4.68) uIU/mL Urine Color Yellow (Yellow) Urine Appearance Clear (Clear) Urine pH 7.5 (5.0-9.0) Ur Specific [place] 1.010 (1.001-1.035) Urine Protein Negative (Negative) mg/dL Urine Glucose (UA) Negative (Negative) mg/dL Urine Ketones Negative (Negative) mg/dL Ur Blood (Man) Negative (Negative) Urine Nitrate Negative (Negative) Urine Bilirubin Negative (Negative) Urine Urobilinogen 0.2 (<2.0) mg/dL Leukocyte Esterase Rfl Negative (Negative) GRAHAM/UL ABG Data ABG results: 08/14/24 11:55 VBG pH 7.432 H* VBG pCO2 38.5 L VBG pO2 29.4 L VBG HCO3 25.1 O2 Delivery Device Not Reportable O2 Liters/Min Not Reportable FiO2 21 Discharge Plan Discharge Clinical Impression: Dementia, Low back pain, Inability to walk Patient Disposition: Still a Patient Condition: Stable
[2024-08-14] MEDS: methocarbamoL 750 MG TABLET PO (19:21)
--- NOTE | 2024-08-14 20:14 | P.HP_ITS ---
H&P: HPI History of Present Illness Date/Time: 08/14/24 20:14 Chief Complaint: fall Narrative: This is a 79-year-old female with past medical history significant for degenerative joint disease, dementia. patient was brought to the emergency room after she was found down at home, patient unable to get up by herself complaining of right hip pain. Patient can not really contribute in a meaningful way to history taking. Most of the history has been obtained from son who is at bedside. patient has been her usual state of health up until this point. Preliminary workup has been essentially nonrevealing. Patient has been admitted for further evaluation management and treatment. CT brain wo con Ordering provider: Man Sanchez MD History: 79 years Female with . Fall . Comparison: None. Technique: CT of the head without contrast. Radiation Reduction technique utilized.The dose-length product was 681 mGy-cm. FINDINGS: BRAIN PARENCHYMA AND CSF SPACES: Mild leukoaraiosis and diffuse cortical atrophy. Mild atheromatous disease. No midline shift, mass effect or hemorrhage. The brain parenchyma and CSF spaces are otherwise normal. Empty sella turcica. VISUALIZED PARANASAL SINUSES: Well aerated. MASTOIDS: Well aerated. BONES: The bones appear intact. SOFT TISSUES: Visualized nasopharynx is normal. Superficial soft tissues are normal. IMPRESSION: No acute intracranial findings. XR chest 1V Ordering provider: Man Sanchez MD History: 79 years Female with . AMS . Comparison: None. FINDINGS: MEDIASTINUM: The cardiac silhouette is not enlarged. LUNGS: No infiltrates, effusions or pneumothorax. Emphysematous changes. OTHER: No free air under the diaphragm. IMPRESSION: No acute cardiopulmonary pathology. EXAMINATION: CT pelvis wo con DATE: 08/14/2024 19:31 INDICATION: Pelvic fracture. TECHNIQUE: Computed tomography (CT) of the pelvis was performed without intravenous contrast. Automated exposure control and iterative reconstruction technique were employed. The dose-length product was 189.06 mGy-cm. COMPARISON: Pelvis radiograph 08/14/2024. FINDINGS: There is diverticulosis of the colon without evidence of diverticulitis. There is no ascites. Alignment is normal. No fracture. There is mild osteoarthritis of the hips. There is moderate lower lumbar spondylosis. IMPRESSION: 1. No fracture. Review of Systems Review of Systems: Fall, right hip pain. PMFSH Past Medical History Medical History Carotid bruit Encounter to establish care History of carotid stenosis Hyperglycemia Post-nasal drip Screening for metabolic disorder UTI symptoms Family History Family History (Updated 08/14/24 @ 22:46 by Corie Wesley RN) Mother Dementia Father Cerebrovascular accident Social History Social History Smoking status: Never smoker Alcohol intake: never Substance use: never Substance use type: does not use Do You Feel Safe in your Home?: Yes Lack of Transportation: No Lack of Food: Never True Current Housing: I Have Housing Concerned About Future Housing: No Difficulty Paying Gas/Electric Bills: No Difficulty Paying for Meds: No Currently Unemployed: No Education: Master's Degree or Higher Difficulty w/ Childcare or Family Care: No Spiritual care concerns: No Meds Home Medications and Allergies Home Medications Medication Instructions Recorded Confirmed Type atorvastatin 10 mg tablet 10 mg PO QHS #90 tabs 07/08/24 08/14/24 Rx acetaminophen 650 mg PO PRN PRN Pain (Scale 08/14/24 08/14/24 History Score 1-3) Allergies Allergy/AdvReac Type Severity Reaction Status Date / Time No Known Allergies Allergy Verified 07/04/24 08:12 Vital Signs Vital Signs - 24 hr 08/14/24 11:01 08/14/24 11:26 08/14/24 11:30 Temperature 98.1 F Pulse Rate 73 81 81 Respiratory Rate 13 8 L 13 Blood Pressure 161/70 H Pulse Oximetry 100 95 100 Oxygen Delivery Room Air 08/14/24 11:31 08/14/24 11:45 08/14/24 11:47 Temperature Pulse Rate 85 79 80 Respiratory Rate 17 15 15 Blood Pressure 164/86 H 169/75 H Pulse Oximetry 100 98 99 Oxygen Delivery 08/14/24 12:00 08/14/24 12:01 08/14/24 12:15 Temperature Pulse Rate 86 88 80 Respiratory Rate 19 24 H 11 L Blood Pressure 158/70 H Pulse Oximetry 100 100 Oxygen Delivery 08/14/24 12:16 08/14/24 12:34 08/14/24 12:45 Temperature Pulse Rate 88 85 Respiratory Rate 28 H 17 Blood Pressure 174/68 H Pulse Oximetry 100 Oxygen Delivery 08/14/24 13:00 08/14/24 13:12 08/14/24 13:15 Temperature Pulse Rate 85 92 96 Respiratory Rate 10 L 17 19 Blood Pressure 185/70 H Pulse Oximetry 100 96 100 Oxygen Delivery 08/14/24 13:16 08/14/24 13:30 08/14/24 13:32 Temperature Pulse Rate 96 81 81 Respiratory Rate 18 11 L 9 L Blood Pressure 200/96 H 157/50 H Pulse Oximetry 100 100 100 Oxygen Delivery 08/14/24 13:33 08/14/24 14:49 08/14/24 15:34 Temperature Pulse Rate 82 89 89 Respiratory Rate 15 17 17 Blood Pressure Pulse Oximetry 100 99 99 Oxygen Delivery 08/14/24 18:09 08/14/24 18:15 08/14/24 18:16 Temperature Pulse Rate 86 86 83 Respiratory Rate 19 15 12 Blood Pressure 164/80 H 168/77 H Pulse Oximetry 100 100 98 Oxygen Delivery Exam Narrative: laying in a stretcher Const: General: comfortable, no acute distress, well developed, alert, awake, average body habitus and other ( well-appearing) Nutritional Appearance: average body habitus Orientation/consciousness: oriented to person, oriented to place and oriented to time HENMT: Head: normal to inspection, normocephalic and atraumatic Ears: hearing grossly normal bilaterally Face/Nose/Sinus: normal facial exam Face and sinus: normal facial exam Eyes: General: appearance normal, both eyes and all related structures Pupils: Equal, round and reactive pupils present EOM: EOMs intact bilaterally Neck: Neck: full ROM, no lymphadenopathy and no JVD Thyroid: thyroid normal Lymphatic: no lymphadenopathy noted Resp: Effort & Inspection: normal respiratory effort and able to speak in complete sentences Auscultation: clear to auscultation bilaterally Cardio: Jugular venous distension: no JVD Rate: regular rate Rhythm: regular rhythm Heart sounds: S1 normal heart sound present and S2 normal heart sound present GI: GI Palp: Yes Soft to palpation and Yes No hepatosplenomegaly present : General: Yes deferred Skin: Rashes: no rashes Wounds: no wounds Neuro: General: patient oriented x3 and CN's II-XI intact bilaterally Cranial nerves: Yes CN's II-XII intact bilaterally and Yes Equal, round and reactive pupils present Cognition (Neuro): normal cognition Speech: normal speech Gait exam (Neuro): Unable to assess gait Motor exam (neuro): 5/5 motor strength present throughout Extrem: General: normal to inspection, full ROM, no joint enlargement and no pedal edema H&P: Results Labs Labs: Short CBC 08/14/24 Range/Units 12:05 WBC 8.4 (4.5-10.0) K/mm3 Hgb 14.8 (12.0-15.0) g/dL Hct 44.7 (37.0-47.0) % Plt Count 272 (150-375) k/mm3 BMP 08/14/24 12:05 Sodium 136 L Potassium 4.0 Chloride 105 Carbon Dioxide 26 BUN 18 H Creatinine 0.90 Glucose 101 Calcium 9.3 Cardiac Enzymes 08/14/24 08/14/24 Range/Units 12:05 15:09 Troponin I < 0.012 < 0.012 (0.000-0.034) ng/mL Liver Function 08/14/24 Range/Units 12:05 Total Bilirubin 0.7 (0.2-1.3) mg/dL AST 37 H (14-36) U/L ALT 31 (6-35) U/L Alkaline Phosphatase 104 (38-126) U/L Albumin 4.2 (3.5-5.1) g/dL Urine 08/14/24 Range/Units 13:26 Urine Color Yellow (Yellow) Urine Appearance Clear (Clear) Urine pH 7.5 (5.0-9.0) Ur Specific [place] 1.010 (1.001-1.035) Urine Protein Negative (Negative) mg/dL Urine Glucose (UA) Negative (Negative) mg/dL Assessment and Plan Assessment and plan (1) Fall: Code(s): W19.XXXA - Unspecified fall, initial encounter Status: Acute Assessment and Plan: admit to regular medical floor fall precautions PT OT consult (2) Low back pain: Code(s): M54.50 - Low back pain, unspecified Status: Acute Assessment and Plan: Tylenol p.r.n. (3) Inability to walk: Code(s): R26.2 - Difficulty in walking, not elsewhere classified Status: Acute Assessment and Plan: patient with right hip pain CT of the pelvis reviewed PT OT consult (4) Memory loss: Code(s): R41.3 - Other amnesia Status: Acute Assessment and Plan: patient not on medication (5) Hyperlipidemia: Code(s): E78.5 - Hyperlipidemia, unspecified Status: Acute Assessment and Plan: continue atorvastatin Hospitalist [facility] Advance Care Plan I have confirmed that the patient's Advanced Care Plan is present, code status is documented, or surrogate decision maker is listed in patient medical record.: Yes Medication Reconciliation I have utilized all available resources to obtain, update and review the patients current medications (includes all prescriptions, OTC, herbals, can nabis, and nutritional supplements).: Yes
--- NOTE | 2024-08-14 22:32 | ADMGEN ---
This patient, Rosa Maria Squires, was admitted to 2 Medical Room 255-01. Patient/family oriented to hospital policies and general routines including ID bracelet, bed and alarms, visiting hours, pain management, procedures, bathroom and other care routines, personal items, smoking policy, room service/diet, and visiting hours. Information on how to activate the Rapid Response Team has been discussed. Patient/Family are encouraged to report perceived risks to care and to ask questions if they do not understand what they are told or what they should do.
[2024-08-15] VITALS (7 sets, daily range): BP systolic 142–165; BP diastolic 53–69; PULSE 70–86; RESP 16–20; TEMP 36.4–36.6; O2SAT 95–100
[2024-08-15] MEDS: traMADol HCL (*CRX) 50 MG TABLET PO ×2 (05:17→16:47)
[2024-08-15] MEDS: polyethylene glycoL 3350 17 GM POWD.PACK PO (06:24)
[2024-08-15 08:45] LABS: Basophils Absolute Auto 0.1 K/mm3 (0.0-0.1); Basophils Percent Auto 0.7 % (0.2-1.2); Eosinophils Absolute Auto 0.1 K/mm3 (0-0.3); Eosinophils Percent Auto 0.5 % (0-4.4); Hematocrit 42.6 % (37.0-47.0); Hemoglobin 14.3 g/dL (12.0-15.0); Immature Granulocyte Absolute 0.05 K/mm3 (0.00-0.031); Immature Granulocyte Percent A 0.5 % (0-0.5); Lymphocytes Absolute Auto 1.48 K/mm3 (0.9-3.2); Lymphocytes Percent Auto 15.1 % (18.3-44.2); Mean Corpuscular HGB Conc 33.6 g/dl (32-36); Mean Corpuscular Hemoglobin 28.9 pg (26-34); Mean Corpuscular Volume 86.2 fl (80-100); Mean Platelet Volume 10.5 fl (7.4-10.4); Monocytes Absolute Auto 0.5 K/mm3 (0.1-0.6); Monocytes Percent Auto 5.2 % (2.6-8.5); Neutrophils Absolute Auto 7.6 K/mm3 (1.3-6.7); Platelet Count Result 271 k/mm3 (150-375); Red Blood Count 4.94 M/mm3 (4.2-5.4); Red Cell Distribution Width 13.1 % (11.5-14.5); White Blood Count 9.8 K/mm3 (4.5-10.0)
[2024-08-15 08:57] LABS: Alanine Aminotransferase 24 U/L (6-35); Albumin Level 3.9 g/dL (3.5-5.1); Alkaline Phosphatase 83 U/L (38-126); Anion Gap 5 mmol/L (4-12); Aspartate Amino Transferase 34 U/L (14-36); Bilirubin,Total 0.9 mg/dL (0.2-1.3); Blood Urea Nitrogen 19 mg/dL (7-17); Calcium 8.9 mg/dL (8.4-10.2); Carbon Dioxide 24 mmol/L (22-30); Chloride 106 mmol/L (98-107); Estimated CRCL calculation 37 ml/min; Estimated Glomerular Filt Rate 60; Glucose 105 mg/dL (65-110); Potassium 4.5 mmol/L (3.4-5.0); Sodium 135 mmol/L (137-145)
--- NOTE | 2024-08-15 10:33 | PM.IMPN ---
Progress Note: A&P Assessment and Plan (1) Fall: Code(s): W19.XXXA - Unspecified fall, initial encounter Status: Acute Assessment and Plan: admit to regular medical floor fall precautions MRI of lumbar spine. Start Prednisone 40 mg PO daily. (2) Low back pain: Code(s): M54.50 - Low back pain, unspecified Status: Acute Assessment and Plan: Tylenol p.r.n. Lumbar Spine CT showed: FINDINGS: VERTEBRAE: Normal height and alignment. No subluxation or visible acute fracture. A hemangioma is seen in L5. DISC SPACES: . Slight narrowing of the disc L2-3. Multilevel facet joint disease. T12-L1: No stenosis. Mild diffuse disc bulge. L1-L2: No stenosis. Mild diffuse disc bulge. L2-L3: No stenosis. Mild diffuse disc bulge with bilateral narrowing of the foramina. No definite root compression. L3-L4: No stenosis. Diffuse disc bulge. Narrowing of the foramina with no definite root compression. L4-L5: Mild spinal canal stenosis secondary to broad based disc bulge, facet arthropathy, and ligamentum flavum hypertrophy. L5-S1: No stenosis. Diffuse disc bulge. Narrowing of the right foramen and nerve root compression. PARASPINOUS SOFT TISSUES: Mild atheromatous disease of the abdominal aorta. Stone in the left kidney lower pole. Mild renal fullness bilaterally. IMPRESSION: No acute osseous abnormalities. Multilevel degenerative disc disease with variable degrees of spinal canal stenosis, intervertebral foraminal narrowing and with nerve roots compression. Left kidney stone. Pelvic CT showed no fracture. MRI lumbar spine ordered. Prednisone 40 mg PO daily. (3) Inability to walk: Code(s): R26.2 - Difficulty in walking, not elsewhere classified Status: Acute Assessment and Plan: MRI lumbar spine ordered Prednisone 40 mg PO daily. (4) Left renal stone: Code(s): N20.0 - Calculus of kidney Status: Acute Assessment and Plan: left kidney stone Urology consult (5) Memory loss: Code(s): R41.3 - Other amnesia Status: Acute Assessment and Plan: patient not on medication (6) Hyperlipidemia: Code(s): E78.5 - Hyperlipidemia, unspecified Status: Acute Assessment and Plan: continue atorvastatin Subjective Date/time seen: 08/15/24 10:33 Interval history: Patient reports pain in left lower back is a 5 , constant, and aching. Family at bedside and concerned about patient getting up since it causes pain and concerned about a spinal injury. Patient denies a headache, dizziness, shortness of breath, nausea, or vomiting. Review of Systems Review of Systems: All systems reviewed & are unremarkable except as noted in HPI and below Exam Const: General: no acute distress and uncomfortable Resp: Effort & Inspection: normal respiratory effort Auscultation: clear to auscultation bilaterally Cardio: Rate: regular rate Rhythm: regular rhythm GI: GI Palp: Yes Soft to palpation Auscultation: normal bowel sounds : Other: No CVA tenderness. Neuro: Speech: normal speech Other: Alert, Moving 4/4 extremities. Extrem: General: normal to inspection Psych: Affect: normal affect Objective Data Vital Signs Vital Signs: Vital Signs - 24 hr 08/14/24 11:01 08/14/24 11:26 08/14/24 11:30 Temperature 98.1 F Pulse Rate 73 81 81 Respiratory Rate 13 8 L 13 Blood Pressure 161/70 H Pulse Oximetry 100 95 100 Oxygen Delivery Room Air 08/14/24 11:31 08/14/24 11:45 08/14/24 11:47 Temperature Pulse Rate 85 79 80 Respiratory Rate 17 15 15 Blood Pressure 164/86 H 169/75 H Pulse Oximetry 100 98 99 Oxygen Delivery 08/14/24 12:00 08/14/24 12:01 08/14/24 12:15 Temperature Pulse Rate 86 88 80 Respiratory Rate 19 24 H 11 L Blood Pressure 158/70 H Pulse Oximetry 100 100 Oxygen Delivery 08/14/24 12:16 08/14/24 12:34 08/14/24 12:45 Temperature Pulse Rate 88 85 Respiratory Rate 28 H 17 Blood Pressure 174/68 H Pulse Oximetry 100 Oxygen Delivery 08/14/24 13:00 08/14/24 13:12 08/14/24 13:15 Temperature Pulse Rate 85 92 96 Respiratory Rate 10 L 17 19 Blood Pressure 185/70 H Pulse Oximetry 100 96 100 Oxygen Delivery 08/14/24 13:16 08/14/24 13:30 08/14/24 13:32 Temperature Pulse Rate 96 81 81 Respiratory Rate 18 11 L 9 L Blood Pressure 200/96 H 157/50 H Pulse Oximetry 100 100 100 Oxygen Delivery 08/14/24 13:33 08/14/24 14:49 08/14/24 15:34 Temperature Pulse Rate 82 89 89 Respiratory Rate 15 17 17 Blood Pressure Pulse Oximetry 100 99 99 Oxygen Delivery 08/14/24 18:09 08/14/24 18:15 08/14/24 18:16 Temperature Pulse Rate 86 86 83 Respiratory Rate 19 15 12 Blood Pressure 164/80 H 168/77 H Pulse Oximetry 100 100 98 Oxygen Delivery 08/14/24 18:17 08/14/24 19:32 08/14/24 19:45 Temperature Pulse Rate 83 94 87 Respiratory Rate 29 H 13 21 H Blood Pressure Pulse Oximetry 100 99 98 Oxygen Delivery 08/14/24 19:46 08/14/24 20:32 08/14/24 20:45 Temperature Pulse Rate 85 79 82 Respiratory Rate 22 H 14 15 Blood Pressure 136/69 Pulse Oximetry 98 97 97 Oxygen Delivery 08/14/24 20:46 08/14/24 23:08 08/15/24 04:00 Temperature 97.8 F 97.7 F Pulse Rate 84 82 74 Respiratory Rate 15 18 20 Blood Pressure 152/54 H 148/62 H 165/69 H Pulse Oximetry 97 98 100 Oxygen Delivery 08/15/24 09:17 08/15/24 09:24 08/15/24 08:00 Temperature 97.7 F Pulse Rate 70 Respiratory Rate 20 19 Blood Pressure 158/62 H Pulse Oximetry 96 96 99 Oxygen Delivery Room Air Room Air Intake/Output Intake/Output: Intake & Output 08/12/24 08/13/24 08/14/24 08/15/24 23:59 23:59 23:59 23:59 Intake Total 1000 220 Output Total 400 Balance 1000 -180 Meds/Results Medications: Active Medications Generic Name Dose Route Start Last Admin Trade Name Freq PRN Reason Stop Dose Admin Acetaminophen 1,000 mg 08/14/24 23:02 08/14/24 23:16 Acetaminophen 500 Mg Tablet PO 1,000 mg Q6H PRN Administration Mild Pain (1-3) or Fever Atorvastatin Calcium 10 mg 08/15/24 21:00 Atorvastatin 10 Mg Tablet PO QHS [facility] Ondansetron HCl 4 mg 08/14/24 23:02 Ondansetron Inj 4 Mg/2 Ml Vial IV PUSH Q6H PRN Nausea And Vomiting Polyethylene Glycol 17 gm 08/14/24 23:02 08/15/24 06:24 Polyethylene Glycol 3350 17 Gm Powd.Pack PO 17 gm QAM PRN Administration Constipation Tramadol HCl 50 mg 08/14/24 23:02 08/15/24 05:17 Tramadol Hcl (*Crx) 50 Mg Tablet PO 50 mg Q6H PRN Administration Pain Rated 4-6 Radiology Results: ITS Impressions Head CT 08/14/24 12:26 IMPRESSION: No acute intracranial findings. Chest X-Ray 08/14/24 12:46 IMPRESSION: No acute cardiopulmonary pathology. Pelvis X-Ray 08/14/24 12:48 IMPRESSION: No acute osseous abnormality pelvis. Cervical Spine CT 08/14/24 13:03 Impression: Degenerative disease, without acute fracture, as detailed above. Lumbar Spine CT 08/14/24 13:12 IMPRESSION: No acute osseous abnormalities. Multilevel degenerative disc disease with variable degrees of spinal canal stenosis, intervertebral foraminal narrowing and with nerve roots compression. Left kidney stone. Pelvis CT 08/14/24 19:33 IMPRESSION: 1. No fracture. Labs Labs: Laboratory Results - last 24 hr 08/14/24 08/14/24 08/14/24 11:55 12:05 13:26 WBC 8.4 RBC 5.20 Hgb 14.8 Hct 44.7 MCV 86.0 MCH 28.5 MCHC 33.1 RDW 12.8 Plt Count 272 MPV 10.5 H Immature Gran % (Auto) 0.6 H Neut % (Auto) 72.5 Lymph % (Auto) 20.8 [place] % (Auto) 4.4 Eos % (Auto) 0.6 Baso % (Auto) 1.1 Lymph # (Auto) 1.75 [place] # (Auto) 0.4 Eos # (Auto) 0.1 Baso # (Auto) 0.1 Abs Immat Gran (auto) 0.05 H Absolute Neuts (auto) 6.1 Absolute Nucleated RBC 0.000 Nucleated RBC % 0.0 PT 13.0 INR 0.9 APTT 27.9 VBG pH 7.432 H* VBG pCO2 38.5 L VBG pO2 29.4 L VBG HCO3 25.1 O2 Delivery Device Not Reportable O2 Liters/Min Not Reportable FiO2 21 Sodium 136 L Potassium 4.0 Chloride 105 Carbon Dioxide 26 Anion Gap 5 BUN 18 H Creatinine 0.90 Estim Creat Clear Calc 57 Estimated GFR 60 Glucose 101 Lactic Acid 1.7 Calcium 9.3 Phosphorus 2.9 Magnesium 2.3 Total Bilirubin 0.7 AST 37 H ALT 31 Alkaline Phosphatase 104 Troponin I < 0.012 Total Protein 8.0 Albumin 4.2 Lipase 123 TSH (Reflex) 3.280 Urine Color Yellow Urine Appearance Clear Urine pH 7.5 Ur Specific [place] 1.010 Urine Protein Negative Urine Glucose (UA) Negative Urine Ketones Negative Ur Blood (Man) Negative Urine Nitrate Negative Urine Bilirubin Negative Urine Urobilinogen 0.2 Leukocyte Esterase Rfl Negative 08/14/24 08/15/24 15:09 08:24 WBC 9.8 RBC 4.94 Hgb 14.3 Hct 42.6 MCV 86.2 MCH 28.9 MCHC 33.6 RDW 13.1 Plt Count 271 MPV 10.5 H Immature Gran % (Auto) 0.5 Neut % (Auto) 78.0 H Lymph % (Auto) 15.1 L [place] % (Auto) 5.2 Eos % (Auto) 0.5 Baso % (Auto) 0.7 Lymph # (Auto) 1.48 [place] # (Auto) 0.5 Eos # (Auto) 0.1 Baso # (Auto) 0.1 Abs Immat Gran (auto) 0.05 H Absolute Neuts (auto) 7.6 H Absolute Nucleated RBC 0.000 Nucleated RBC % 0.0 PT INR APTT VBG pH VBG pCO2 VBG pO2 VBG HCO3 O2 Delivery Device O2 Liters/Min FiO2 Sodium 135 L Potassium 4.5 Chloride 106 Carbon Dioxide 24 Anion Gap 5 BUN 19 H Creatinine 0.90 Estim Creat Clear Calc 37 Estimated GFR 60 Glucose 105 Lactic Acid Calcium 8.9 Phosphorus Magnesium Total Bilirubin 0.9 AST 34 ALT 24 Alkaline Phosphatase 83 Troponin I < 0.012 Total Protein 7.0 Albumin 3.9 Lipase TSH (Reflex) Urine Color Urine Appearance Urine pH Ur Specific [place] Urine Protein Urine Glucose (UA) Urine Ketones Ur Blood (Man) Urine Nitrate Urine Bilirubin Urine Urobilinogen Leukocyte Esterase Rfl Quality VTE Prophylaxis VTE prophylaxis: mechanical ordered
[2024-08-15] MEDS: predniSONE 20 MG TABLET 40 MG PO (14:26)
--- NOTE | 2024-08-15 15:40 | P.CONUR_ITS ---
Assessment and Plan Assessment and plan (1) Left renal stone: Code(s): N20.0 - Calculus of kidney Status: Acute (2) Low back pain: Code(s): M54.50 - Low back pain, unspecified Status: Acute Assessment and Plan: * Incidental finding of 4-5 mm nonobstructing left lower calyceal stone. This stone is nonobstructing and not a reasonable explanation for her back pain * I would not recommend intervention at this small size. Would simply suggest repeat imaging with KUB in 6 months * Discussed with patient and her son who was present at the bedside Urology Consult Note HPI Date Seen: 08/15/24 Requesting Physician: Vania Almeida MD Primary Care Provider: Lien Miramontes, Consult Narrative Narrative: Rosa Maria Squires is a 79 year old female without prior significant urological history without history of urolithiasis admitted after a fall with severe back pain. Spine i imaging incidentally demonstrated a 4-5 mm nonobstructing left lower calyceal stone. Again patient has no known history of urolithiasis denies hematuria or significant irritable voiding symptoms. Review of Systems Review of Systems: All systems reviewed & are unremarkable except as noted in HPI and below PMFSH Past Medical History Medical History Carotid bruit Encounter to establish care History of carotid stenosis Hyperglycemia Post-nasal drip Screening for metabolic disorder UTI symptoms Family History Family History (Updated 08/14/24 @ 22:46 by Corie Wesley RN) Mother Dementia Father Cerebrovascular accident Social History Social History Smoking status: Never smoker Alcohol intake: never Substance use: never Substance use type: does not use Do You Feel Safe in your Home?: Yes Lack of Transportation: No Lack of Food: Never True Current Housing: I Have Housing Concerned About Future Housing: No Difficulty Paying Gas/Electric Bills: No Difficulty Paying for Meds: No Currently Unemployed: No Education: Master's Degree or Higher Difficulty w/ Childcare or Family Care: No Spiritual care concerns: No Meds Home Medications and Allergies Home Medications Medication Instructions Recorded Confirmed Type atorvastatin 10 mg tablet 10 mg PO QHS #90 tabs 07/08/24 08/14/24 Rx acetaminophen 650 mg PO PRN PRN Pain (Scale 08/14/24 08/14/24 History Score 1-3) Allergies Allergy/AdvReac Type Severity Reaction Status Date / Time No Known Allergies Allergy Verified 07/04/24 08:12 Vital Signs Vital Signs - 24 hr 08/14/24 18:09 08/14/24 18:15 08/14/24 18:16 Temperature Pulse Rate 86 86 83 Respiratory Rate 19 15 12 Blood Pressure 164/80 H 168/77 H Pulse Oximetry 100 100 98 Oxygen Delivery 08/14/24 18:17 08/14/24 19:32 08/14/24 19:45 Temperature Pulse Rate 83 94 87 Respiratory Rate 29 H 13 21 H Blood Pressure Pulse Oximetry 100 99 98 Oxygen Delivery 08/14/24 19:46 08/14/24 20:32 08/14/24 20:45 Temperature Pulse Rate 85 79 82 Respiratory Rate 22 H 14 15 Blood Pressure 136/69 Pulse Oximetry 98 97 97 Oxygen Delivery 08/14/24 20:46 08/14/24 23:08 08/15/24 04:00 Temperature 97.8 F 97.7 F Pulse Rate 84 82 74 Respiratory Rate 15 18 20 Blood Pressure 152/54 H 148/62 H 165/69 H Pulse Oximetry 97 98 100 Oxygen Delivery 08/15/24 09:17 08/15/24 09:24 08/15/24 08:00 Temperature 97.7 F Pulse Rate 70 Respiratory Rate 20 19 Blood Pressure 158/62 H Pulse Oximetry 96 96 99 Oxygen Delivery Room Air Room Air 08/15/24 12:00 Temperature 98 F Pulse Rate 84 Respiratory Rate 19 Blood Pressure 149/60 H Pulse Oximetry 97 Oxygen Delivery Exam Const: General: no acute distress Resp: Effort & Inspection: normal respiratory effort GI: Inspection: non-distended GI Palp: No abdominal tenderness and No Guarding due to palpation present (GI) Auscultation: normal bowel sounds Results Labs 08/15/24 08:24 08/15/24 08:24 Labs: Short CBC 08/15/24 Range/Units 08:24 WBC 9.8 (4.5-10.0) K/mm3 Hgb 14.3 (12.0-15.0) g/dL Hct 42.6 (37.0-47.0) % Plt Count 271 (150-375) k/mm3 BMP 08/15/24 08:24 Sodium 135 L Potassium 4.5 Chloride 106 Carbon Dioxide 24 BUN 19 H Creatinine 0.90 Glucose 105 Calcium 8.9 Liver Function 08/15/24 Range/Units 08:24 Total Bilirubin 0.9 (0.2-1.3) mg/dL AST 34 (14-36) U/L ALT 24 (6-35) U/L Alkaline Phosphatase 83 (38-126) U/L Albumin 3.9 (3.5-5.1) g/dL
[2024-08-15] MEDS: ATORVASTATIN 10 MG TABLET PO (20:35)
[2024-08-16] VITALS (7 sets, daily range): BP systolic 128–168; BP diastolic 44–80; PULSE 70–90; RESP 16; TEMP 36.3–37.1; O2SAT 95–98
[2024-08-16 06:19] LABS: Basophils Absolute Auto 0.1 K/mm3 (0.0-0.1); Basophils Percent Auto 0.5 % (0.2-1.2); Eosinophils Percent Auto 0.3 % (0-4.4); Hematocrit 40.7 % (37.0-47.0); Hemoglobin 13.4 g/dL (12.0-15.0); Immature Granulocyte Absolute 0.07 K/mm3 (0.00-0.031); Immature Granulocyte Percent A 0.7 % (0-0.5); Lymphocytes Absolute Auto 2.07 K/mm3 (0.9-3.2); Lymphocytes Percent Auto 19.7 % (18.3-44.2); Mean Corpuscular HGB Conc 32.9 g/dl (32-36); Mean Corpuscular Hemoglobin 28.4 pg (26-34); Mean Corpuscular Volume 86.2 fl (80-100); Mean Platelet Volume 10.5 fl (7.4-10.4); Monocytes Absolute Auto 0.6 K/mm3 (0.1-0.6); Monocytes Percent Auto 5.6 % (2.6-8.5); Neutrophils Absolute Auto 7.7 K/mm3 (1.3-6.7); Neutrophils Percent Auto 73.2 % (45.5-73.1); Platelet Count Result 283 k/mm3 (150-375); Red Blood Count 4.72 M/mm3 (4.2-5.4); Red Cell Distribution Width 12.8 % (11.5-14.5); White Blood Count 10.5 K/mm3 (4.5-10.0)
[2024-08-16 06:32] LABS: Alanine Aminotransferase 22 U/L (6-35); Albumin Level 3.9 g/dL (3.5-5.1); Alkaline Phosphatase 76 U/L (38-126); Anion Gap 4 mmol/L (4-12); Aspartate Amino Transferase 33 U/L (14-36); Bilirubin,Total 0.8 mg/dL (0.2-1.3); Blood Urea Nitrogen 16 mg/dL (7-17); Calcium 9.2 mg/dL (8.4-10.2); Carbon Dioxide 26 mmol/L (22-30); Chloride 104 mmol/L (98-107); Estimated CRCL calculation 41 ml/min; Estimated Glomerular Filt Rate > 60; Glucose 108 mg/dL (65-110); Potassium 4.4 mmol/L (3.4-5.0); Sodium 134 mmol/L (137-145)
--- NOTE | 2024-08-16 07:26 | P.CONNS_ITS ---
Assessment and Plan Assessment and plan (1) Low back pain: Code(s): M54.50 - Low back pain, unspecified Status: Acute Assessment and Plan: This is a 79-year-old female who presents with acute low back pain found to have a kidney stone and general arthritis of her lumbar spine without any significant cauda equina or nerve root compression. She has no severe areas of neural foraminal stenosis or central stenosis. She does have areas of her throat is which is not unexpected for her age. I do not recommend any acute neurosurgical intervention. I do not think that she needs any surgery at this time. I r ecommend conservative management in the form of physical therapy as well as a pain management consult for low back pain. I explained this in detail to her and her son. They understand and had no further questions. Consult date: 08/16/24 Reason for consult: Evaluation of neural foraminal stenosis, spinal canal stenosis, narrowing, nerve root compression HPI: Rosa Maria Squires is a 79 year old female who presents after significant back pain. She had so much pain that her son's thought that she broke her hip and brought her to the emergency room where she underwent a pelvic CT abdominal CT and lumbar CT scan. The abdominal CT indicated a kidney stone for which Urology was consulted. The CT lumbar spine showed some areas of possible neural foraminal narrowing or stenosis. Who my colleague Dr. Duarte was notified as he was on-call and he recommended an MRI lumbar spine. He has me if I can see the patient today. Currently the patient denies any shooting pain into her extremities she denies any weakness in her extremities she denies any numbness tingling, she denies any saddle anesthesia. She notes about 410 back pain. Review of Systems Review of Systems: She denies any significant radiating pain into her legs numbness tingling or weakness she denies any loss of bowel bladder function she denies any saddle anesthesia. [facility] Past Medical History Medical History Carotid bruit Encounter to establish care History of carotid stenosis Hyperglycemia Post-nasal drip Screening for metabolic disorder UTI symptoms Family History Family History (Updated 08/14/24 @ 22:46 by Corie Wesley RN) Mother Dementia Father Cerebrovascular accident Social History Social History Smoking status: Never smoker Alcohol intake: never Substance use: never Substance use type: does not use Do You Feel Safe in your Home?: Yes Lack of Transportation: No Lack of Food: Never True Current Housing: I Have Housing Concerned About Future Housing: No Difficulty Paying Gas/Electric Bills: No Difficulty Paying for Meds: No Currently Unemployed: No Education: Master's Degree or Higher Difficulty w/ Childcare or Family Care: No Spiritual care concerns: No Meds Home Medications and Allergies Home Medications Medication Instructions Recorded Confirmed Type atorvastatin 10 mg tablet 10 mg PO QHS #90 tabs 07/08/24 08/14/24 Rx acetaminophen 650 mg PO PRN PRN Pain (Scale 08/14/24 08/14/24 History Score 1-3) Allergies Allergy/AdvReac Type Severity Reaction Status Date / Time No Known Allergies Allergy Verified 07/04/24 08:12 Vital Signs Vital Signs - 24 hr 08/15/24 09:17 08/15/24 09:24 08/15/24 08:00 Temperature 97.7 F Pulse Rate 70 Respiratory Rate 20 19 Blood Pressure 158/62 H Pulse Oximetry 96 96 99 Oxygen Delivery Room Air Room Air 08/15/24 12:00 08/15/24 16:00 08/15/24 19:50 Temperature 98 F 97.7 F 97.6 F Pulse Rate 84 86 86 Respiratory Rate 19 17 16 Blood Pressure 149/60 H 142/64 H 142/53 H Pulse Oximetry 97 97 95 Oxygen Delivery 08/16/24 00:07 08/16/24 04:48 Temperature 97.6 F 97.4 F L Pulse Rate 81 76 Respiratory Rate 16 16 Blood Pressure 150/53 H 133/59 L Pulse Oximetry 96 98 Oxygen Delivery Exam Neuro: Other: She is awake alert in no acute distress she moves all her extremities well including the iliopsoas quadriceps hamstrings plantar flexors dorsiflexors EHL. She has no clonus she has symmetric reflexes. I reviewed both her CT lumbar spine and MRI lumbar spine she does have multilevel lumbar spondylosis and degenerative arthritis this arthritis is most severe at the L4-5 and L5-S1 area however she does not have any severe areas of central or neural foraminal stenosis to indicate a pinched nerve. Results Labs 08/16/24 05:57 08/16/24 05:57 Labs: Short CBC 08/15/24 08/16/24 Range/Units 08:24 05:57 WBC 9.8 10.5 H (4.5-10.0) K/mm3 Hgb 14.3 13.4 (12.0-15.0) g/dL Hct 42.6 40.7 (37.0-47.0) % Plt Count 271 283 (150-375) k/mm3 [facility] 08/15/24 08/16/24 08:24 05:57 Sodium 135 L 134 L Potassium 4.5 4.4 Chloride 106 104 Carbon Dioxide 24 26 BUN 19 H 16 Creatinine 0.90 0.80 Glucose 105 108 Calcium 8.9 9.2 Liver Function 08/15/24 08/16/24 Range/Units 08:24 05:57 Total Bilirubin 0.9 0.8 (0.2-1.3) mg/dL AST 34 33 (14-36) U/L ALT 24 22 (6-35) U/L Alkaline Phosphatase 83 76 (38-126) U/L Albumin 3.9 3.9 (3.5-5.1) g/dL
[2024-08-16] MEDS: predniSONE 20 MG TABLET 40 MG PO (09:22)
--- NOTE | 2024-08-16 10:47 | P.PNIM_ITS ---
Progress Note: A&P Assessment and Plan (1) Fall: Code(s): W19.XXXA - Unspecified fall, initial encounter Status: Acute Assessment and Plan: * admit to regular medical floor * fall precautions (2) Low back pain: Code(s): M54.50 - Low back pain, unspecified Status: Acute Assessment and Plan: * Tylenol p.r.n. * Lumbar Spine CT showed: FINDINGS: VERTEBRAE: Normal height and alignment. No subluxation or visible acute fracture. A hemangioma is seen in L5. DISC SPACES: . Slight narrowing of the disc L2-3. Multilevel facet joint disease. T12-L1: No stenosis. Mild diffuse disc bulge. L1-L2: No stenosis. Mild diffuse disc bulge. L2-L3: No stenosis. Mild diffuse disc bulge with bilateral narrowing of the foramina. No definite root compression. L3-L4: No stenosis. Diffuse disc bulge. Narrowing of the foramina with no definite root compression. L4-L5: Mild spinal canal stenosis secondary to broad based disc bulge, facet arthropathy, and ligamentum flavum hypertrophy. L5-S1: No stenosis. Diffuse disc bulge. Narrowing of the right foramen and nerve root compression. PARASPINOUS SOFT TISSUES: Mild atheromatous disease of the abdominal aorta. Stone in the left kidney lower pole. Mild renal fullness bilaterally. IMPRESSION: No acute osseous abnormalities. Multilevel degenerative disc disease with variable degrees of spinal canal stenosis, intervertebral foraminal narrowing and with nerve roots compression. Left kidney stone. * Pelvic CT showed no fracture. * MRI lumbar spine showed: FINDINGS: There is 8 degrees dextrocurvature of lumbar spine. There is 3 mm anterolisthesis of L4 on L5. There is mild chronic anterior wedging of T11 vertebral body. There is mildly decreased disc height at T11-T12 and T12-L1, moderately decreased disc height at L1-L2, and mildly decreased disc height at L5-S1. The distal spinal cord signal intensity is normal. The conus medullaris is at L1-L2. The following disc levels are specifically discussed: L1-L2: The disc is bulging. There is mild bilateral facet joint osteoarthritis. There is mild left neural foraminal stenosis. There is mild central canal stenosis. L2-L3: The disc is bulging. There is mild bilateral facet joint osteoarthritis. There is mild bilateral neural foraminal stenosis. There is mild central canal stenosis. L3-L4: The disc is bulging and has an annular fissure. There is severe right and moderate left facet joint osteoarthritis. There is mild bilateral neural foraminal stenosis. There is mild central canal stenosis. L4-L5: The disc is bulging and has an annular fissure. There is severe bilateral facet joint osteoarthritis. There is mild bilateral neural foraminal stenosis. There is mild central canal stenosis. L5-S1: The disc is bulging and has an annular fissure. There is severe bilateral facet joint osteoarthritis. There is mild bilateral neural foraminal stenosis. There is mild central canal stenosis. IMPRESSION: 1. Moderate lumbar spondylosis. * Prednisone 40 mg PO daily. * Neurosurgery recommended conservative treatment with PT and pain management. (3) Inability to walk: Code(s): R26.2 - Difficulty in walking, not elsewhere classified Status: Acute Assessment and Plan: * Prednisone 40 mg PO daily. * PT/OT * Care coordination working on SNF rehab for patient. (4) Left renal stone: Code(s): N20.0 - Calculus of kidney Status: Acute Assessment and Plan: * left kidney stone * Urology consulted and no intervention needed at this time. (5) Memory loss: Code(s): R41.3 - Other amnesia Status: Acute Assessment and Plan: * patient not on medication (6) Hyperlipidemia: Code(s): E78.5 - Hyperlipidemia, unspecified Status: Acute Assessment and Plan: * continue atorvastatin Subjective Date/time seen: 08/16/24 10:47 Interval history: Patient reports pain in left lower back is a 5 , constant, and aching. Son and boyfriend spoke to neurosurgery this morning and report they were told that patient was okay and did not need intervention. Son reports that he later received a phone call from primary stating that the patient has bulging discs. Reviewed neurosurgeries assessment and recommendations. Patient denies a headache, dizziness, shortness of breath, nausea, or vomiting. Review of Systems Review of Systems: All systems reviewed & are unremarkable except as noted in HPI and below Exam Const: General: no acute distress and uncomfortable Resp: Effort & Inspection: normal respiratory effort Auscultation: clear to auscultation bilaterally Cardio: Rate: regular rate Rhythm: regular rhythm GI: GI Palp: Yes Soft to palpation Auscultation: normal bowel sounds Neuro: Speech: normal speech Other: Alert, Moving 4/4 extremities. Extrem: General: normal to inspection Psych: Affect: normal affect Objective Data Vital Signs Vital Signs: Vital Signs - 24 hr 08/15/24 12:00 08/15/24 16:00 08/15/24 19:50 Temperature 98 F 97.7 F 97.6 F Pulse Rate 84 86 86 Respiratory Rate 19 17 16 Blood Pressure 149/60 H 142/64 H 142/53 H Pulse Oximetry 97 97 95 08/16/24 00:07 08/16/24 04:48 08/16/24 09:05 Temperature 97.6 F 97.4 F L 97.4 F L Pulse Rate 81 76 70 Respiratory Rate 16 16 16 Blood Pressure 150/53 H 133/59 L 128/44 L Pulse Oximetry 96 98 97 Intake/Output Intake/Output: Intake & Output 08/13/24 08/14/24 08/15/24 08/16/24 23:59 23:59 23:59 23:59 Intake Total 1000 922 660 Output Total 1400 550 Balance 1000 -478 110 Meds/Results Medications: Active Medications Generic Name Dose Route Start Last Admin Trade Name Freq PRN Reason Stop Dose Admin Acetaminophen 1,000 mg 08/14/24 23:02 08/14/24 23:16 Acetaminophen 500 Mg Tablet PO 1,000 mg Q6H PRN Administration Mild Pain (1-3) or Fever Atorvastatin Calcium 10 mg 08/15/24 21:00 08/15/24 20:35 Atorvastatin 10 Mg Tablet PO 10 mg QHS ENRIQUE Administration Ondansetron HCl 4 mg 08/14/24 23:02 Ondansetron Inj 4 Mg/2 Ml Vial IV PUSH Q6H PRN Nausea And Vomiting Polyethylene Glycol 17 gm 08/14/24 23:02 08/15/24 06:24 Polyethylene Glycol 3350 17 Gm Powd.Pack PO 17 gm QAM PRN Administration Constipation Prednisone 40 mg 08/15/24 13:40 08/16/24 09:22 Prednisone 20 Mg Tablet PO 40 mg DAILY@0800 ENRIQUE Administration Tramadol HCl 50 mg 08/14/24 23:02 08/15/24 16:47 Tramadol Hcl (*Crx) 50 Mg Tablet PO 50 mg Q6H PRN Administration Pain Rated 4-6 Radiology Results: ITS Impressions Head CT 08/14/24 12:26 IMPRESSION: No acute intracranial findings. Chest X-Ray 08/14/24 12:46 IMPRESSION: No acute cardiopulmonary pathology. Pelvis X-Ray 08/14/24 12:48 IMPRESSION: No acute osseous abnormality pelvis. Cervical Spine CT 08/14/24 13:03 Impression: Degenerative disease, without acute fracture, as detailed above. Lumbar Spine CT 08/14/24 13:12 IMPRESSION: No acute osseous abnormalities. Multilevel degenerative disc disease with variable degrees of spinal canal stenosis, intervertebral foraminal narrowing and with nerve roots compression. Left kidney stone. Pelvis CT 08/14/24 19:33 IMPRESSION: 1. No fracture. Lumbar Spine MRI 08/15/24 16:25 IMPRESSION: 1. Moderate lumbar spondylosis. Labs Labs: Laboratory Results - last 24 hr 08/16/24 05:57 WBC 10.5 H RBC 4.72 Hgb 13.4 Hct 40.7 MCV 86.2 MCH 28.4 MCHC 32.9 RDW 12.8 Plt Count 283 MPV 10.5 H Immature Gran % (Auto) 0.7 H Neut % (Auto) 73.2 H Lymph % (Auto) 19.7 [place] % (Auto) 5.6 Eos % (Auto) 0.3 Baso % (Auto) 0.5 Lymph # (Auto) 2.07 [place] # (Auto) 0.6 Eos # (Auto) 0.0 Baso # (Auto) 0.1 Abs Immat Gran (auto) 0.07 H Absolute Neuts (auto) 7.7 H Absolute Nucleated RBC 0.000 Nucleated RBC % 0.0 Sodium 134 L Potassium 4.4 Chloride 104 Carbon Dioxide 26 Anion Gap 4 BUN 16 Creatinine 0.80 Estim Creat Clear Calc 41 Estimated GFR > 60 Glucose 108 Calcium 9.2 Total Bilirubin 0.8 AST 33 ALT 22 Alkaline Phosphatase 76 Total Protein 7.0 Albumin 3.9 Quality VTE Prophylaxis VTE prophylaxis: mechanical ordered
[2024-08-16] MEDS: ACETAMINOPHEN 500 MG TABLET 1000 MG PO (13:02)
[2024-08-16] MEDS: traMADol HCL (*CRX) 50 MG TABLET PO ×2 (15:57→22:15)
[2024-08-16] MEDS: ATORVASTATIN 10 MG TABLET PO (20:24)
[2024-08-17] VITALS (8 sets, daily range): BP systolic 132–150; BP diastolic 40–65; PULSE 72–90; RESP 14–18; TEMP 36.5–36.8; O2SAT 95–98
[2024-08-17 05:32] LABS: Basophils Absolute Auto 0.1 K/mm3 (0.0-0.1); Basophils Percent Auto 0.4 % (0.2-1.2); Eosinophils Percent Auto 0.3 % (0-4.4); Hematocrit 39.8 % (37.0-47.0); Hemoglobin 13.1 g/dL (12.0-15.0); Immature Granulocyte Absolute 0.11 K/mm3 (0.00-0.031); Immature Granulocyte Percent A 0.8 % (0-0.5); Lymphocytes Absolute Auto 2.89 K/mm3 (0.9-3.2); Lymphocytes Percent Auto 20.9 % (18.3-44.2); Mean Corpuscular HGB Conc 32.9 g/dl (32-36); Mean Corpuscular Hemoglobin 28.4 pg (26-34); Mean Corpuscular Volume 86.1 fl (80-100); Mean Platelet Volume 10.7 fl (7.4-10.4); Monocytes Absolute Auto 0.8 K/mm3 (0.1-0.6); Neutrophils Absolute Auto 9.9 K/mm3 (1.3-6.7); Neutrophils Percent Auto 71.6 % (45.5-73.1); Platelet Count Result 272 k/mm3 (150-375); Red Blood Count 4.62 M/mm3 (4.2-5.4); White Blood Count 13.9 K/mm3 (4.5-10.0)
[2024-08-17 05:49] LABS: Alanine Aminotransferase 21 U/L (6-35); Albumin Level 3.7 g/dL (3.5-5.1); Alkaline Phosphatase 82 U/L (38-126); Anion Gap 3 mmol/L (4-12); Aspartate Amino Transferase 33 U/L (14-36); Bilirubin,Total 0.5 mg/dL (0.2-1.3); Blood Urea Nitrogen 17 mg/dL (7-17); Carbon Dioxide 25 mmol/L (22-30); Chloride 105 mmol/L (98-107); Estimated CRCL calculation 41 ml/min; Estimated Glomerular Filt Rate > 60; Glucose 99 mg/dL (65-110); Sodium 133 mmol/L (137-145)
[2024-08-17] MEDS: ACETAMINOPHEN 500 MG TABLET 1000 MG PO ×2 (09:32→17:16)
[2024-08-17] MEDS: predniSONE 20 MG TABLET 40 MG PO (09:32)
--- NOTE | 2024-08-17 09:54 | P.PNIM_ITS ---
Progress Note: A&P Assessment and Plan (1) Fall: Code(s): W19.XXXA - Unspecified fall, initial encounter Status: Acute Assessment and Plan: * admit to regular medical floor * fall precautions (2) Low back pain: Code(s): M54.50 - Low back pain, unspecified Status: Acute Assessment and Plan: * Tylenol p.r.n. * Lumbar Spine CT showed: FINDINGS: VERTEBRAE: Normal height and alignment. No subluxation or visible acute fracture. A hemangioma is seen in L5. DISC SPACES: . Slight narrowing of the disc L2-3. Multilevel facet joint disease. T12-L1: No stenosis. Mild diffuse disc bulge. L1-L2: No stenosis. Mild diffuse disc bulge. L2-L3: No stenosis. Mild diffuse disc bulge with bilateral narrowing of the foramina. No definite root compression. L3-L4: No stenosis. Diffuse disc bulge. Narrowing of the foramina with no definite root compression. L4-L5: Mild spinal canal stenosis secondary to broad based disc bulge, facet arthropathy, and ligamentum flavum hypertrophy. L5-S1: No stenosis. Diffuse disc bulge. Narrowing of the right foramen and nerve root compression. PARASPINOUS SOFT TISSUES: Mild atheromatous disease of the abdominal aorta. Stone in the left kidney lower pole. Mild renal fullness bilaterally. IMPRESSION: No acute osseous abnormalities. Multilevel degenerative disc disease with variable degrees of spinal canal stenosis, intervertebral foraminal narrowing and with nerve roots compression. Left kidney stone. * Pelvic CT showed no fracture. * MRI lumbar spine showed: FINDINGS: There is 8 degrees dextrocurvature of lumbar spine. There is 3 mm anterolisthesis of L4 on L5. There is mild chronic anterior wedging of T11 vertebral body. There is mildly decreased disc height at T11-T12 and T12-L1, moderately decreased disc height at L1-L2, and mildly decreased disc height at L5-S1. The distal spinal cord signal intensity is normal. The conus medullaris is at L1-L2. The following disc levels are specifically discussed: L1-L2: The disc is bulging. There is mild bilateral facet joint osteoarthritis. There is mild left neural foraminal stenosis. There is mild central canal stenosis. L2-L3: The disc is bulging. There is mild bilateral facet joint osteoarthritis. There is mild bilateral neural foraminal stenosis. There is mild central canal stenosis. L3-L4: The disc is bulging and has an annular fissure. There is severe right and moderate left facet joint osteoarthritis. There is mild bilateral neural foraminal stenosis. There is mild central canal stenosis. L4-L5: The disc is bulging and has an annular fissure. There is severe bilateral facet joint osteoarthritis. There is mild bilateral neural foraminal stenosis. There is mild central canal stenosis. L5-S1: The disc is bulging and has an annular fissure. There is severe bilateral facet joint osteoarthritis. There is mild bilateral neural foraminal stenosis. There is mild central canal stenosis. IMPRESSION: 1. Moderate lumbar spondylosis. * Prednisone 40 mg PO daily. * Neurosurgery recommended conservative treatment with PT and pain management. (3) Inability to walk: Code(s): R26.2 - Difficulty in walking, not elsewhere classified Status: Acute Assessment and Plan: * Prednisone 40 mg PO daily. * PT/OT * Care coordination working on SNF rehab for patient. (4) Left renal stone: Code(s): N20.0 - Calculus of kidney Status: Acute Assessment and Plan: * left kidney stone * Urology consulted and no intervention needed at this time. (5) Memory loss: Code(s): R41.3 - Other amnesia Status: Acute Assessment and Plan: * patient not on medication (6) Hyperlipidemia: Code(s): E78.5 - Hyperlipidemia, unspecified Status: Acute Assessment and Plan: * continue atorvastatin (7) Bladder spasm: Code(s): N32.89 - Other specified disorders of bladder Status: Acute Assessment and Plan: * Voiding trial * Pyridium 100 mg PO X 1. Subjective Date/time seen: 08/17/24 09:54 Interval history: Patient reports pain in left lower back is a 5 , constant, and aching. Patient denies a headache, dizziness, shortness of breath, nausea, or vomiting. Patient complained to nurse of bladder spasm, bladder scan showed no fluid retention per nursing. Review of Systems Review of Systems: All systems reviewed & are unremarkable except as noted in HPI and below Exam Const: General: comfortable and no acute distress Resp: Effort & Inspection: normal respiratory effort Auscultation: clear to auscultation bilaterally Cardio: Rate: regular rate Rhythm: regular rhythm GI: GI Palp: Yes Soft to palpation Auscultation: normal bowel sounds Skin: General skin exam: no rashes or lesions noted Neuro: Speech: normal speech Other: Alert, Moving 4/4 extremities. Extrem: General: normal to inspection Psych: Affect: normal affect Objective Data Vital Signs Vital Signs: Vital Signs - 24 hr 08/16/24 11:54 08/16/24 13:22 08/16/24 12:00 Temperature 98.7 F Pulse Rate 90 Respiratory Rate 16 Blood Pressure 141/55 H Pulse Oximetry 98 Oxygen Delivery Room Air Room Air 08/16/24 16:00 08/16/24 19:24 08/16/24 22:02 Temperature 97.5 F L 97.7 F 98.2 F Pulse Rate 84 83 80 Respiratory Rate 16 16 16 Blood Pressure 150/54 H 168/80 H 145/60 H Pulse Oximetry 97 95 95 Oxygen Delivery 08/16/24 20:18 08/17/24 00:00 08/17/24 04:00 Temperature 98.2 F 97.7 F Pulse Rate 86 75 Respiratory Rate 16 18 Blood Pressure 138/65 135/55 L Pulse Oximetry 98 97 Oxygen Delivery Room Air 08/17/24 06:10 08/17/24 08:00 Temperature 98.0 F 97.7 F Pulse Rate 75 75 Respiratory Rate 18 14 Blood Pressure 135/55 L 132/50 L Pulse Oximetry 97 97 Oxygen Delivery Intake/Output Intake/Output: Intake & Output 08/14/24 08/15/24 08/16/24 08/17/24 23:59 23:59 23:59 23:59 Intake Total 3643 139 0118 220 Output Total 1400 900 300 Balance 1000 -478 240 -80 Meds/Results Medications: Active Medications Generic Name Dose Route Start Last Admin Trade Name Freq PRN Reason Stop Dose Admin Acetaminophen 1,000 mg 08/14/24 23:02 08/17/24 09:32 Acetaminophen 500 Mg Tablet PO 1,000 mg Q6H PRN Administration Mild Pain (1-3) or Fever Atorvastatin Calcium 10 mg 08/15/24 21:00 08/16/24 20:24 Atorvastatin 10 Mg Tablet PO 10 mg QHS ENRIQUE Administration Ondansetron HCl 4 mg 08/14/24 23:02 Ondansetron Inj 4 Mg/2 Ml Vial IV PUSH Q6H PRN Nausea And Vomiting Polyethylene Glycol 17 gm 08/14/24 23:02 08/15/24 06:24 Polyethylene Glycol 3350 17 Gm Powd.Pack PO 17 gm QAM PRN Administration Constipation Prednisone 40 mg 08/15/24 13:40 08/17/24 09:32 Prednisone 20 Mg Tablet PO 40 mg DAILY@0800 ENRIQUE Administration Tramadol HCl 50 mg 08/14/24 23:02 08/16/24 22:15 Tramadol Hcl (*Crx) 50 Mg Tablet PO 50 mg Q6H PRN Administration Pain Rated 4-6 Radiology Results: ITS Impressions Head CT 08/14/24 12:26 IMPRESSION: No acute intracranial findings. Chest X-Ray 08/14/24 12:46 IMPRESSION: No acute cardiopulmonary pathology. Pelvis X-Ray 08/14/24 12:48 IMPRESSION: No acute osseous abnormality pelvis. Cervical Spine CT 08/14/24 13:03 Impression: Degenerative disease, without acute fracture, as detailed above. Lumbar Spine CT 08/14/24 13:12 IMPRESSION: No acute osseous abnormalities. Multilevel degenerative disc disease with variable degrees of spinal canal stenosis, intervertebral foraminal narrowing and with nerve roots compression. Left kidney stone. Pelvis CT 08/14/24 19:33 IMPRESSION: 1. No fracture. Lumbar Spine MRI 08/15/24 16:25 IMPRESSION: 1. Moderate lumbar spondylosis. Labs Labs: Laboratory Results - last 24 hr 08/17/24 05:07 WBC 13.9 H RBC 4.62 Hgb 13.1 Hct 39.8 MCV 86.1 MCH 28.4 MCHC 32.9 RDW 13.0 Plt Count 272 MPV 10.7 H Immature Gran % (Auto) 0.8 H Neut % (Auto) 71.6 Lymph % (Auto) 20.9 [place] % (Auto) 6.0 Eos % (Auto) 0.3 Baso % (Auto) 0.4 Lymph # (Auto) 2.89 [place] # (Auto) 0.8 H Eos # (Auto) 0.0 Baso # (Auto) 0.1 Abs Immat Gran (auto) 0.11 H Absolute Neuts (auto) 9.9 H Absolute Nucleated RBC 0.000 Nucleated RBC % 0.0 Sodium 133 L Potassium 4.0 Chloride 105 Carbon Dioxide 25 Anion Gap 3 L BUN 17 Creatinine 0.80 Estim Creat Clear Calc 41 Estimated GFR > 60 Glucose 99 Calcium 9.0 Total Bilirubin 0.5 AST 33 ALT 21 Alkaline Phosphatase 82 Total Protein 7.0 Albumin 3.7 Quality VTE Prophylaxis VTE prophylaxis: mechanical ordered
[2024-08-17] MEDS: PHENAZOPYRIDINE HCL 100 MG TABLET PO (12:55)
[2024-08-17] MEDS: traMADol HCL (*CRX) 50 MG TABLET PO (12:58)
[2024-08-17] MEDS: ATORVASTATIN 10 MG TABLET PO (21:26)
[2024-08-18] VITALS (7 sets, daily range): BP systolic 142–171; BP diastolic 45–67; PULSE 73–92; RESP 14–18; TEMP 36.3–36.7; O2SAT 96–98
[2024-08-18 05:56] LABS: Basophils Absolute Auto 0.1 K/mm3 (0.0-0.1); Basophils Percent Auto 0.3 % (0.2-1.2); Eosinophils Percent Auto 0.1 % (0-4.4); Hematocrit 39.6 % (37.0-47.0); Hemoglobin 13.4 g/dL (12.0-15.0); Immature Granulocyte Absolute 0.13 K/mm3 (0.00-0.031); Immature Granulocyte Percent A 0.9 % (0-0.5); Lymphocytes Absolute Auto 3.47 K/mm3 (0.9-3.2); Lymphocytes Percent Auto 23.3 % (18.3-44.2); Mean Corpuscular HGB Conc 33.8 g/dl (32-36); Mean Corpuscular Hemoglobin 29.3 pg (26-34); Mean Corpuscular Volume 86.5 fl (80-100); Mean Platelet Volume 10.9 fl (7.4-10.4); Monocytes Absolute Auto 0.8 K/mm3 (0.1-0.6); Monocytes Percent Auto 5.6 % (2.6-8.5); Neutrophils Absolute Auto 10.4 K/mm3 (1.3-6.7); Neutrophils Percent Auto 69.8 % (45.5-73.1); Platelet Count Result 274 k/mm3 (150-375); Red Blood Count 4.58 M/mm3 (4.2-5.4); Red Cell Distribution Width 13.1 % (11.5-14.5); White Blood Count 14.9 K/mm3 (4.5-10.0)
[2024-08-18 06:07] LABS: Alanine Aminotransferase 22 U/L (6-35); Albumin Level 3.7 g/dL (3.5-5.1); Alkaline Phosphatase 95 U/L (38-126); Anion Gap 3 mmol/L (4-12); Aspartate Amino Transferase 29 U/L (14-36); Bilirubin,Total 0.5 mg/dL (0.2-1.3); Blood Urea Nitrogen 20 mg/dL (7-17); Calcium 8.8 mg/dL (8.4-10.2); Carbon Dioxide 26 mmol/L (22-30); Chloride 106 mmol/L (98-107); Estimated CRCL calculation 41 ml/min; Estimated Glomerular Filt Rate > 60; Glucose 98 mg/dL (65-110); Potassium 3.7 mmol/L (3.4-5.0); Sodium 135 mmol/L (137-145)
[2024-08-18] MEDS: predniSONE 20 MG TABLET 40 MG PO (08:10)
--- NOTE | 2024-08-18 10:07 | P.PNIM_ITS ---
Progress Note: A&P Assessment and Plan (1) Fall: Code(s): W19.XXXA - Unspecified fall, initial encounter Status: Acute Assessment and Plan: * admit to regular medical floor * fall precautions * PT/OT (2) Low back pain: Code(s): M54.50 - Low back pain, unspecified Status: Acute Assessment and Plan: * Tylenol p.r.n. * Lumbar Spine CT showed: FINDINGS: VERTEBRAE: Normal height and alignment. No subluxation or visible acute fracture. A hemangioma is seen in L5. DISC SPACES: . Slight narrowing of the disc L2-3. Multilevel facet joint disease. T12-L1: No stenosis. Mild diffuse disc bulge. L1-L2: No stenosis. Mild diffuse disc bulge. L2-L3: No stenosis. Mild diffuse disc bulge with bilateral narrowing of the foramina. No definite root compression. L3-L4: No stenosis. Diffuse disc bulge. Narrowing of the foramina with no definite root compression. L4-L5: Mild spinal canal stenosis secondary to broad based disc bulge, facet arthropathy, and ligamentum flavum hypertrophy. L5-S1: No stenosis. Diffuse disc bulge. Narrowing of the right foramen and nerve root compression. PARASPINOUS SOFT TISSUES: Mild atheromatous disease of the abdominal aorta. Stone in the left kidney lower pole. Mild renal fullness bilaterally. IMPRESSION: No acute osseous abnormalities. Multilevel degenerative disc disease with variable degrees of spinal canal stenosis, intervertebral foraminal narrowing and with nerve roots compression. Left kidney stone. * Pelvic CT showed no fracture. * MRI lumbar spine showed: FINDINGS: There is 8 degrees dextrocurvature of lumbar spine. There is 3 mm anterolisthesis of L4 on L5. There is mild chronic anterior wedging of T11 vertebral body. There is mildly decreased disc height at T11-T12 and T12-L1, moderately decreased disc height at L1-L2, and mildly decreased disc height at L5-S1. The distal spinal cord signal intensity is normal. The conus medullaris is at L1-L2. The following disc levels are specifically discussed: L1-L2: The disc is bulging. There is mild bilateral facet joint osteoarthritis. There is mild left neural foraminal stenosis. There is mild central canal stenosis. L2-L3: The disc is bulging. There is mild bilateral facet joint osteoarthritis. There is mild bilateral neural foraminal stenosis. There is mild central canal stenosis. L3-L4: The disc is bulging and has an annular fissure. There is severe right and moderate left facet joint osteoarthritis. There is mild bilateral neural foraminal stenosis. There is mild central canal stenosis. L4-L5: The disc is bulging and has an annular fissure. There is severe bilateral facet joint osteoarthritis. There is mild bilateral neural foraminal stenosis. There is mild central canal stenosis. L5-S1: The disc is bulging and has an annular fissure. There is severe bilateral facet joint osteoarthritis. There is mild bilateral neural foraminal stenosis. There is mild central canal stenosis. IMPRESSION: 1. Moderate lumbar spondylosis. * Prednisone 40 mg PO daily. * Neurosurgery recommended conservative treatment with PT and pain management. (3) Inability to walk: Code(s): R26.2 - Difficulty in walking, not elsewhere classified Status: Acute Assessment and Plan: * Prednisone 40 mg PO daily. * PT/OT * Care coordination working on SNF rehab for patient. (4) Left renal stone: Code(s): N20.0 - Calculus of kidney Status: Acute Assessment and Plan: * left kidney stone * Urology consulted and no intervention needed at this time. (5) Memory loss: Code(s): R41.3 - Other amnesia Status: Acute Assessment and Plan: * patient not on medication (6) Hyperlipidemia: Code(s): E78.5 - Hyperlipidemia, unspecified Status: Acute Assessment and Plan: * continue atorvastatin Subjective Date/time seen: 08/18/24 10:07 Interval history: Patient reports pain in back is a 5 , constant, and aching. Patient upset because her son is not here and she wants to move back to [place]. Patient reports that she came here recently to stay with her son. Explained to patient that we are working on approval to get patient into rehab to improve her mobility so that she can safely go home. Patient voiced understanding and apologized for being upset. Patient denies chest pain, palpitations, shortness of breath, nausea, or vomiting. Patient reports eating breakfast well and drinking water. Review of Systems Review of Systems: All systems reviewed & are unremarkable except as noted in HPI and below Exam Const: General: comfortable and no acute distress Resp: Effort & Inspection: normal respiratory effort Auscultation: clear to auscultation bilaterally Cardio: Rate: regular rate Rhythm: regular rhythm GI: GI Palp: Yes Soft to palpation Auscultation: normal bowel sounds Skin: General skin exam: no rashes or lesions noted Neuro: Speech: normal speech Psych: Other: Memory loss. Upset that son not here this morning. Objective Data Vital Signs Vital Signs: Vital Signs - 24 hr 08/17/24 12:00 08/17/24 16:00 08/17/24 20:00 Temperature 97.8 F 97.9 F 97.7 F Pulse Rate 82 90 73 Respiratory Rate 16 14 16 Blood Pressure 136/40 L 150/57 H 138/60 Pulse Oximetry 98 98 95 Oxygen Delivery 08/17/24 22:07 08/18/24 01:35 08/17/24 20:00 Temperature 97.8 F 98.0 F Pulse Rate 72 81 Respiratory Rate 16 16 Blood Pressure 143/62 H 142/45 H Pulse Oximetry 97 98 Oxygen Delivery Room Air 08/18/24 04:00 08/18/24 08:00 Temperature 97.9 F 97.5 F L Pulse Rate 73 Respiratory Rate 18 14 Blood Pressure 144/60 H 142/56 H Pulse Oximetry 98 96 Oxygen Delivery Intake/Output Intake/Output: Intake & Output 08/15/24 08/16/24 08/17/24 08/18/24 23:59 23:59 23:59 23:59 Intake Total 922 1140 700 0 Output Total 1400 900 301 Balance -478 240 399 0 Meds/Results Medications: Active Medications Generic Name Dose Route Start Last Admin Trade Name Freq PRN Reason Stop Dose Admin Acetaminophen 1,000 mg 08/14/24 23:02 08/17/24 17:16 Acetaminophen 500 Mg Tablet PO 1,000 mg Q6H PRN Administration Mild Pain (1-3) or Fever Atorvastatin Calcium 10 mg 08/15/24 21:00 08/17/24 21:26 Atorvastatin 10 Mg Tablet PO 10 mg QHS ENRIQUE Administration Ondansetron HCl 4 mg 08/14/24 23:02 Ondansetron Inj 4 Mg/2 Ml Vial IV PUSH Q6H PRN Nausea And Vomiting Polyethylene Glycol 17 gm 08/14/24 23:02 08/15/24 06:24 Polyethylene Glycol 3350 17 Gm Powd.Pack PO 17 gm QAM PRN Administration Constipation Prednisone 40 mg 08/15/24 13:40 08/18/24 08:10 Prednisone 20 Mg Tablet PO 40 mg DAILY@0800 ENRIQUE Administration Tramadol HCl 50 mg 08/14/24 23:02 08/17/24 12:58 Tramadol Hcl (*Crx) 50 Mg Tablet PO 50 mg Q6H PRN Administration Pain Rated 4-6 Radiology Results: ITS Impressions Head CT 08/14/24 12:26 IMPRESSION: No acute intracranial findings. Chest X-Ray 08/14/24 12:46 IMPRESSION: No acute cardiopulmonary pathology. Pelvis X-Ray 08/14/24 12:48 IMPRESSION: No acute osseous abnormality pelvis. Cervical Spine CT 08/14/24 13:03 Impression: Degenerative disease, without acute fracture, as detailed above. Lumbar Spine CT 08/14/24 13:12 IMPRESSION: No acute osseous abnormalities. Multilevel degenerative disc disease with variable degrees of spinal canal stenosis, intervertebral foraminal narrowing and with nerve roots compression. Left kidney stone. Pelvis CT 08/14/24 19:33 IMPRESSION: 1. No fracture. Lumbar Spine MRI 08/15/24 16:25 IMPRESSION: 1. Moderate lumbar spondylosis. Labs Labs: Laboratory Results - last 24 hr 08/18/24 05:27 WBC 14.9 H RBC 4.58 Hgb 13.4 Hct 39.6 MCV 86.5 MCH 29.3 MCHC 33.8 RDW 13.1 Plt Count 274 MPV 10.9 H Immature Gran % (Auto) 0.9 H Neut % (Auto) 69.8 Lymph % (Auto) 23.3 [place] % (Auto) 5.6 Eos % (Auto) 0.1 Baso % (Auto) 0.3 Lymph # (Auto) 3.47 H [place] # (Auto) 0.8 H Eos # (Auto) 0.0 Baso # (Auto) 0.1 Abs Immat Gran (auto) 0.13 H Absolute Neuts (auto) 10.4 H Absolute Nucleated RBC 0.000 Nucleated RBC % 0.0 Sodium 135 L Potassium 3.7 Chloride 106 Carbon Dioxide 26 Anion Gap 3 L BUN 20 H Creatinine 0.80 Estim Creat Clear Calc 41 Estimated GFR > 60 Glucose 98 Calcium 8.8 Total Bilirubin 0.5 AST 29 ALT 22 Alkaline Phosphatase 95 Total Protein 7.0 Albumin 3.7 Quality VTE Prophylaxis VTE prophylaxis: mechanical ordered
[2024-08-18] MEDS: ACETAMINOPHEN 500 MG TABLET 1000 MG PO ×2 (11:49→17:33)
[2024-08-18] MEDS: ATORVASTATIN 10 MG TABLET PO (20:03)
[2024-08-18] MEDS: traMADol HCL (*CRX) 50 MG TABLET PO (20:03)
[2024-08-19 00:10] VITALS: BP 144/69; PULSE 72; RESP 18; TEMP 36.5; O2SAT 98
[2024-08-19 04:00] VITALS: BP 138/50; PULSE 68; RESP 18; TEMP 36.7; O2SAT 96
[2024-08-19 06:07] LABS: Basophils Absolute Auto 0.1 K/mm3 (0.0-0.1); Basophils Percent Auto 0.6 % (0.2-1.2); Eosinophils Percent Auto 0.3 % (0-4.4); Hematocrit 39.6 % (37.0-47.0); Hemoglobin 12.9 g/dL (12.0-15.0); Immature Granulocyte Absolute 0.11 K/mm3 (0.00-0.031); Immature Granulocyte Percent A 0.9 % (0-0.5); Lymphocytes Absolute Auto 3.75 K/mm3 (0.9-3.2); Lymphocytes Percent Auto 30.8 % (18.3-44.2); Mean Corpuscular HGB Conc 32.6 g/dl (32-36); Mean Corpuscular Hemoglobin 28.4 pg (26-34); Mean Platelet Volume 10.8 fl (7.4-10.4); Monocytes Absolute Auto 0.7 K/mm3 (0.1-0.6); Monocytes Percent Auto 5.8 % (2.6-8.5); Neutrophils Absolute Auto 7.5 K/mm3 (1.3-6.7); Neutrophils Percent Auto 61.6 % (45.5-73.1); Platelet Count Result 290 k/mm3 (150-375); Red Blood Count 4.55 M/mm3 (4.2-5.4); Red Cell Distribution Width 13.2 % (11.5-14.5); White Blood Count 12.2 K/mm3 (4.5-10.0)
[2024-08-19 06:19] LABS: Alanine Aminotransferase 21 U/L (6-35); Albumin Level 3.5 g/dL (3.5-5.1); Alkaline Phosphatase 79 U/L (38-126); Anion Gap 5 mmol/L (4-12); Aspartate Amino Transferase 26 U/L (14-36); Bilirubin,Total 0.5 mg/dL (0.2-1.3); Blood Urea Nitrogen 20 mg/dL (7-17); Calcium 8.8 mg/dL (8.4-10.2); Carbon Dioxide 28 mmol/L (22-30); Chloride 106 mmol/L (98-107); Estimated CRCL calculation 41 ml/min; Estimated Glomerular Filt Rate > 60; Glucose 88 mg/dL (65-110); Sodium 139 mmol/L (137-145)
[2024-08-19 08:00] VITALS: BP 146/63; PULSE 72; RESP 18; TEMP 35.8; O2SAT 99
[2024-08-19 09:20] VITALS: RESP 18; O2SAT 99
[2024-08-19] MEDS: predniSONE 20 MG TABLET 40 MG PO (09:20)
--- NOTE | 2024-08-19 09:40 | P.DS_ITS ---
DS: Admitting Diagnosis Discharge Date 08/19/2024 Admitting Diagnosis Fall. Low back pain. DS: Discharge Diagnosis Discharge Diagnosis (1) Fall: Code(s): W19.XXXA - Unspecified fall, initial encounter Status: Acute (2) Low back pain: Code(s): M54.50 - Low back pain, unspecified Status: Acute (3) Dementia: Code(s): F03.90 - Unspecified dementia, unspecified severity, without behavioral disturbance, psychotic disturbance, mood disturbance, and anxiety Status: Acute (4) Left renal stone: Code(s): N20.0 - Calculus of kidney Status: Acute DS: Summary Hospital Course Hospital Course: * Lumbar Spine CT showed: FINDINGS: VERTEBRAE: Normal height and alignment. No subluxation or visible acute fracture. A hemangioma is seen in L5. DISC SPACES: . Slight narrowing of the disc L2-3. Multilevel facet joint disease. T12-L1: No stenosis. Mild diffuse disc bulge. L1-L2: No stenosis. Mild diffuse disc bulge. L2-L3: No stenosis. Mild diffuse disc bulge with bilateral narrowing of the foramina. No definite root compression. L3-L4: No stenosis. Diffuse disc bulge. Narrowing of the foramina with no definite root compression. L4-L5: Mild spinal canal stenosis secondary to broad based disc bulge, facet arthropathy, and ligamentum flavum hypertrophy. L5-S1: No stenosis. Diffuse disc bulge. Narrowing of the right foramen and nerve root compression. PARASPINOUS SOFT TISSUES: Mild atheromatous disease of the abdominal aorta. Stone in the left kidney lower pole. Mild renal fullness bilaterally. IMPRESSION: No acute osseous abnormalities. Multilevel degenerative disc disease with variable degrees of spinal canal stenosis, intervertebral foraminal narrowing and with nerve roots compression. Left kidney stone. * Pelvic CT showed no fracture. * MRI lumbar spine showed: FINDINGS: There is 8 degrees dextrocurvature of lumbar spine. There is 3 mm anterolisthesis of L4 on L5. There is mild chronic anterior wedging of T11 vertebral body. There is mildly decreased disc height at T11-T12 and T12-L1, moderately decreased disc height at L1-L2, and mildly decreased disc height at L5-S1. The distal spinal cord signal intensity is normal. The conus medullaris is at L1-L2. The following disc levels are specifically discussed: L1-L2: The disc is bulging. There is mild bilateral facet joint osteoarthritis. There is mild left neural foraminal stenosis. There is mild central canal stenosis. L2-L3: The disc is bulging. There is mild bilateral facet joint osteoarthritis. There is mild bilateral neural foraminal stenosis. There is mild central canal stenosis. L3-L4: The disc is bulging and has an annular fissure. There is severe right and moderate left facet joint osteoarthritis. There is mild bilateral neural foraminal stenosis. There is mild central canal stenosis. L4-L5: The disc is bulging and has an annular fissure. There is severe bilateral facet joint osteoarthritis. There is mild bilateral neural foraminal stenosis. There is mild central canal stenosis. L5-S1: The disc is bulging and has an annular fissure. There is severe bilateral facet joint osteoarthritis. There is mild bilateral neural foraminal stenosis. There is mild central canal stenosis. IMPRESSION: 1. Moderate lumbar spondylosis. * Prednisone 40 mg PO daily x 5 days with improvement. * Neurosurgery recommended conservative treatment with PT and pain management. * Received PT/OT with improvement. * Discharged to [facility] for rehabilitation. * Urology seen for left kidney stone (4-5 mm nonobstructing left lower calyceal stone), not obstructing and no need for intervention at this time. Status at Discharge Functional status at discharge: uses cane/walker Overall status at discharge: patient is not back to baseline Time Spent with Patient Time attestation: Total time spent providing and/or coordinating discharge services: Time spent: Greater than 30 minutes Exam Const: General: no acute distress and uncomfortable Other: Pain in back with activity or movement is a 5 , frequent, and aching. Resp: Effort & Inspection: normal respiratory effort Auscultation: clear to auscultation bilaterally Cardio: Rate: regular rate Rhythm: regular rhythm GI: GI Palp: Yes Soft to palpation Auscultation: normal bowel sounds Skin: General skin exam: no rashes or lesions noted Neuro: Other: Alert, Moving 4/4 extremities. Extrem: General: normal to inspection Psych: Affect: normal affect DS: Data Data Completed and Pending Labs on day of discharge: Labs from last 24 hours 08/19/24 05:14 WBC 12.2 H RBC 4.55 Hgb 12.9 Hct 39.6 MCV 87.0 MCH 28.4 MCHC 32.6 RDW 13.2 Plt Count 290 MPV 10.8 H Immature Gran % (Auto) 0.9 H Neut % (Auto) 61.6 Lymph % (Auto) 30.8 [place] % (Auto) 5.8 Eos % (Auto) 0.3 Baso % (Auto) 0.6 Lymph # (Auto) 3.75 H [place] # (Auto) 0.7 H Eos # (Auto) 0.0 Baso # (Auto) 0.1 Abs Immat Gran (auto) 0.11 H Absolute Neuts (auto) 7.5 H Absolute Nucleated RBC 0.000 Nucleated RBC % 0.0 Sodium 139 Potassium 4.0 Chloride 106 Carbon Dioxide 28 Anion Gap 5 BUN 20 H Creatinine 0.80 Estim Creat Clear Calc 41 Estimated GFR > 60 Glucose 88 Calcium 8.8 Total Bilirubin 0.5 AST 26 ALT 21 Alkaline Phosphatase 79 Total Protein 6.0 L Albumin 3.5 Discharge Plan Discharge Attending physician on discharge: Alan Watts Consulting providers: Jacob Salazar; Sheldon Duarte Discharging Clinician: Skylar Redmond Anticipated Discharge Date/Time: 08/19/24 10:30 Patient Disposition: SNF Activity: january shower Diet: regular Discharge Instructions: * Follow up with primary after rehab is completed. * PT/OT at [facility]. Patient Instructions: Fall Prevention for Older Adults (DC), Back Pain (GEN) Stand Alone Forms: General Discharge Information Follow-up/Referrals: Fe,MD Lien [Primary Care Provider] - 2 Weeks Discharge Medications: New tramadol 50 mg Tablet 50 mg PO Q6H PRN (Reason: Pain Rated 4-6) Qty: 10 0RF polyethylene glycol 3350 [Miralax] 17 gram Powder In Packet 17 g PO QAM PRN (Reason: Constipation) Qty: 14 0RF Continued acetaminophen 650 mg PO PRN PRN (Reason: Pain (Scale Score 1-3)) atorvastatin 10 mg tablet 10 mg PO QHS Qty: 90 1RF Date of admission: 08/15/24 07:29 Primary Care Provider: Fe,Lien Admitting Provider: Vania Almeida V. Attending physician on admission: Vania Almeida V. Condition: Stable Hospitalist MIPS Heart Failure (Exclusion) Patient has history of Heart Transplant or Left Ventricular Assistive Device?: No IF YES, STOP HERE Heart Failure (Qualifier) Patient has current or prior documentation of LVEF less than or equal to 40%, or mod/servere depressed LVSF?: No IF NO, STOP HERE
[2024-08-19 10:53] LABS: SARS-CoV-2 RNA PCR Negative (Negative)
== END 2024-08-19 13:35 ==
LOC: ANHED 19:34 → ANH2MED 08-15 13:21
PROVIDERS: Emergency Medicine; Nurse Practitioner Family; Admitting Provider Internal Medicine; Emergency Provider Emergency Medicine; PCP Pediatrics; Visit Provider General Practice
DX: M47.816 Spondylosis without myelopathy or radiculopathy, lumbar region (principal); M51.369 Other intervertebral disc degeneration, lumbar region without mention of lumbar back pain or lower extremity pain; R26.2 Difficulty in walking, not elsewhere classified; W19.XXXA Unspecified fall, initial encounter; N20.0 Calculus of kidney; N32.89 Other specified disorders of bladder; E78.5 Hyperlipidemia, unspecified; R41.3 Other amnesia; I65.29 Occlusion and stenosis of unspecified carotid artery; Z11.52 Encounter for screening for COVID-19; Z79.899 Other long term (current) drug therapy
CPT/HCPCS: 36415; 70450; 71045; 72125; 72131; 72148; 72170; 72192; 80053; 81003; 82803; 83605; 83690; 83735; 84100; 84443; 84484; 85025; 85610; 85730; 87635; 93005; 96361; 96374; 96375; 97116; 97162; 97165; 97530; 97535; 99285; A9270; G0378; J1171; J1885; J7030; J7512

== ENCOUNTER 2025-05-19 01:45 | Emergency (ER) | payer MEDICARE, SELFPAY ==
--- NOTE | ~2025-05-19 | CT_ITS ---
EXAMINATION: CT brain wo con DATE: 05/19/2025 02:25 INDICATION: Head injury TECHNIQUE: Computed tomography (CT) of the head was performed without intravenous contrast. Sagittal and coronal reconstructions were performed. The mA was adjusted according to patient size. Iterative reconstruction technique was employed. The dose-length product was 605.33 mGy-cm. COMPARISON: head CT dated 08/14/2024 FINDINGS: No fracture. No acute intracranial hemorrhage, acute infarction or abnormal extra axial fluid collection. There is mild scattered white matter hypoattenuation consistent with chronic small vessel ischemic disease. Symmetric prominence of the sulci and ventricles consistent with moderate age-appropriate diffuse cerebral volume loss. Ventricles are normal and symmetric. No mass/mass effect. Changes of bilateral intraocular lens replacement. The orbits, paranasal sinuses and mastoid air cells are normal. IMPRESSION: 1. Aging brain. No fracture or acute intracranial process. Reviewed, dictated and finalized at location A.
--- NOTE | ~2025-05-19 | XR_ITS ---
EXAMINATION: XR hip LT 2V w AP pelvis DATE: 05/19/2025 02:29 INDICATION: Pelvis and left hip trauma post fall TECHNIQUE: Anteroposterior view of the pelvis and anteroposterior and frog-leg lateral views of the left hip were obtained. COMPARISON: Pelvis radiographs and CT dated 08/14/2024 FINDINGS: Bone alignment is normal. No fracture. Bilateral hip and sacroiliac joint spaces are relatively preserved. Mild lumbar spondylosis with moderate to severe lower lumbar facet osteoarthritis. IMPRESSION: 1. No acute osseous abnormality. Reviewed, dictated and finalized at location A.
--- NOTE | ~2025-05-19 | CT_ITS ---
EXAMINATION: CT cervical spine wo con DATE: 05/19/2025 02:25 INDICATION: Fall with head injury TECHNIQUE: Computed tomography (CT) of the cervical spine was performed without intravenous contrast. Automated exposure control and iterative reconstruction technique were employed. The dose-length product was 205.23 mGy-cm. COMPARISON: None FINDINGS: 15 degree cervical and cervicothoracic dextrocurvature. Mild reversal of the normal cervical lordosis. Moderate osteoarthritis at the atlantoaxial articulation. Vertebral body heights are normal. No acute fracture. Moderate disc height loss at C4-C5 and C6-C7. Mild to moderate disc height loss at C2 C4 and C5-C6. There is multilevel moderate to severe bilateral cervical facet osteoarthritis as well as uncovertebral osteoarthritis at C3-C4 through C6-C7. Associated small posterior endplate osteophytes contribute to minimal central canal stenosis at C4-C5 through C6-C7 and along with facet osteoarthritis contributing to mild multilevel left-sided predominant cervical neural foraminal stenosis. Atherosclerotic calcification at the bilateral carotid bulbs, left greater than right. Cervical soft tissues are otherwise unremarkable. Mild biapical pleural-parenchymal scarring. IMPRESSION: 1. 15 degrees cervical and cervicothoracic with mild reversal of the normal cervical lordosis and moderate spondylosis. No acute osseous abnormality. Reviewed, dictated and finalized at location A. IMPRESSION: 1. 15 degrees cervical and cervicothoracic with mild reversal of the normal cer vical lordosis and moderate spondylosis. No acute osseous abnormality.
[2025-05-19 01:46] VITALS: BP 164/75; PULSE 81; RESP 17; TEMP 36.4
--- NOTE | 2025-05-19 02:38 | ED_ITS ---
HPI - Fall General Chief Complaint: Fall Stated Complaint: GLF, neck, R shoulder, L hip pain History of Present Illness HPI Narrative: Patient is an 80-year-old female who presents to the emergency department this evening status post an unwitnessed ground level fall from her [facility]. Staff found the patient on the ground. Per staff, they believe that she was down for maybe approximately 15-30 minutes. Patient was complaining of right-sided neck pain, left hip pain and right arm pain. Patient denies any loss of consciousness. Denies any blood thinner use. Patient is able to move all 4 extremities spontaneously. No additional symptoms or concerns at this time. Related Data Home Medications ?Medication ?Instructions ?Recorded ?Confirmed ?Last Taken ?Type acetaminophen 650 mg PO PRN PRN Pain (Scal e 08/14/24 05/19/25 Unknown History Score 1-3) divalproex 250 mg tablet,delayed 250 mg PO Q12H 05/19/25 Unknown History release (Depakote) loratadine 10 mg tablet 10 mg PO DAILY 05/19/2504/26 Unknown History (Allerclear) tramadol 50 mg tablet mg 05/19/25 Unknown History Allergies Allergy/AdvReac Type Severity Reaction Status Date / Time No Known Allergies Allergy Verified 05/19/25 02:26 Review of Systems Review of Systems: All systems are reviewed and are negative unless stated otherwise in the HPI. COUNTS INCLUDE 234 BEDS AT THE [facility] Past Medical History Medical History UTI symptoms Post-nasal drip History of carotid stenosis Encounter to establish care Hyperglycemia Screening for metabolic disorder Carotid bruit Family History Family History Mother Dementia Father Cerebrovascular accident Social History Social History Smoking status: Never smoker Alcohol intake: never Substance use: never Substance use type: does not use Do You Feel Safe in your Home?: Yes Lack of Transportation: No Lack of Food: Never True Current Housing: I Have Housing Concerned About Future Housing: No Difficulty Paying Gas/Electric Bills: No Difficulty Paying for Meds: No Currently Unemployed: No Education: Master's Degree or Higher Difficulty w/ Childcare or Family Care: No Spiritual care concerns: No Exam Narrative: General: Alert, awake, afebrile, in no acute distress. HEENT: PERRL, no rhinorrhea, no post nasal drip, oropharynx clear. Neck: Trachea midline, no JVD, no lymphadenopathy, C-collar in place, no midline tenderness to palpation over the cervical spine. Cardiovascular: Regular rate and rhythm, no murmurs, rubs or gallops, no peripheral edema. Respiratory: Clear to auscultation bilaterally, no tachypnea, no wheezing, no rhonchi, no rubs, no respiratory distress. Abdomen: Soft, nontender, nondistended, no rebound, no guarding, no peritoneal signs. Musculoskeletal: No joint swelling or deformity, normal muscle tone, intact bilateral hip flexions any extensions, intact full range of motion at the bilateral hip joints, bilateral upper and lower extremity, no deformity noted. Skin: No rashes or petechia, no signs of infection. Psychiatric: Alert and oriented, normal behavior and judgment for situation. Neurological: Alert and oriented to person, place, and time. Follows all commands. No focal deficits, speech is clear and fluent. Course Vital Signs Vital signs: Vital Signs Temperature 97.6 F 05/19/25 01:46 Pulse Rate 81 05/19/25 01:46 Respiratory Rate 17 05/19/25 01:46 Blood Pressure 164/75 H 05/19/25 01:46 Oxygen Delivery Room Air 05/19/25 01:46 Temperature 97.6 F 05/19/25 01:46 Pulse Rate 77 05/19/25 03:00 Respiratory Rate 13 05/19/25 03:00 Blood Pressure 160/85 H 05/19/25 03:00 Pulse Oximetry 97 05/19/25 03:00 Oxygen Delivery Room Air 05/19/25 01:46 MDM - Fall MDM Narrative Medical decision making narrative: The patient was evaluated by myself in the emergency department. History is obtained from patient who is an independent historian along with EMS report and physical exam was performed. External medical records were reviewed at this time. Patient was administered 1 g of oral Tylenol at this time for pain. Imaging studies obtained included CT brain and C-spine without IV contrast, AP pelvis with left hip x-rays which was independently interpreted by me revealing no acute process, which is pending final radiology interpretation. Patient was informed of these findings at bedside. C-collar removed. Family members including patient's sons were present at bedside were updated regarding patient's imaging results. There informed patient can either be sent back [facility] via EMS given her dementia or they can drive her back and they elected take her Bactrim cells. Differential diagnosis considerations include fractures, dislocations, intracranial hemorrhage. Comorbidities impacting this visit include none. I have evaluated and discussed social determinants of health with the patient that could potentially impact subsequent diagnosis and treatment plans. On repeat assessment of the patient, reevaluation revealed that the patient is doing well and is in no acute distress. Patient symptoms have improved since she arrived to our emergency department. Repeat vital signs were all reviewed and noted to be stable. Differential diagnosis and treatment plan were discussed with the patient at bedside. Patient agrees with discussion and after shared medical decision making agrees with discharge. All questions were answered to the patient's satisfaction. Patient will follow up with her PCP in 3-5 days. Patient was provided with strict return precautions and instructed to return to the emergency department if any new or worsening symptoms develop. The patient was discharged to the care for sons in stable condition. Discharge Plan Discharge Clinical Impression: Fall from ground level, Head injury Patient Disposition: SNF Condition: Improved Instructions: Fall Prevention for Older Adults (ED), Head Injury (ED) Additional Instructions: Please follow-up with your family doctor within the next 3-5 days. Return to the emergency department if any new or worsening symptoms develop. Patient Language: British Prescriptions: No Action divalproex [Depakote] 250 mg tablet,delayed release (DR/EC) 250 mg PO Q12H loratadine [Allerclear] 10 mg tablet 10 mg PO DAILY tramadol 50 mg tablet acetaminophen 650 mg PO PRN PRN (Reason: Pain (Scale Score 1-3)) polyethylene glycol 3350 [Miralax] 17 gram Powder In Packet 17 g PO QAM PRN (Reason: Constipation) Qty: 14 0RF atorvastatin 10 mg tablet 10 mg PO QHS Qty: 90 1RF Follow-up/Referrals: Fe Rodriguez FNP-C [Primary Care Provider, Internal Medicine] - 3 Days Time of Disposition: 02:57
[2025-05-19 03:00] VITALS: BP 160/85; PULSE 77; RESP 13; O2SAT 97
[2025-05-19] MEDS: ACETAMINOPHEN 500 MG TABLET 1000 MG PO (03:09)
== END 2025-05-19 03:20 | disposition home or self-care (01) ==
PROVIDERS: Emergency Provider Emergency Medicine; PCP Clinical Nurse Specialist
DX: S09.90XA Unspecified injury of head, initial encounter (principal); I65.29 Occlusion and stenosis of unspecified carotid artery; M47.812 Spondylosis without myelopathy or radiculopathy, cervical region; W19.XXXA Unspecified fall, initial encounter
CPT/HCPCS: 70450; 72125; 73502; 99284; A9270

== ENCOUNTER 2025-09-20 05:48 | Emergency (ER) | payer MEDICARE, SELFPAY ==
[2025-09-20 05:48] VITALS: BP 134/58; PULSE 94; RESP 16; TEMP 36.9; O2SAT 97
--- NOTE | 2025-09-20 06:29 | ED.FALL ---
HPI - Fall General Chief Complaint: Fall Stated Complaint: GLF Time Seen by Provider: 09/20/25 06:26 Source: patient and family (2 sons) Mode of arrival: EMS Limitations: dementia History of Present Illness HPI Narrative: Patient presents after report of a ground level fall. Resides in memory care unit of local facility. Notably, patient's sons have arrived and report that they have a camera in room and witnessed their mother slide from the bed. They requested patient not be sent to the ED but facility sent her anyway. They are requesting patient be discharged without any imaging. She denies any pain at first. Denies headache thought states there's something in my brain.' She was found on the floor in her unit. Denies chest pain or abdominal pain. She does report right shoulder pain which family states is the same injury she reported during last fall for which she was sent to the ED and imaging was negative. Unknown LOC. not on anticogulation. A&O x1 at baseline and currently. Related Data Home Medications ?Medication ?Instructions ?Recorded ?Confirmed ?Last Taken ?Type acetaminophen 650 mg PO PRN PRN Pain (Scale 08/14/24 05/19/25 Unknown History Score 1-3) divalproex 250 mg tablet,delayed 250 mg PO Q12H 05/19/25 05/19/25 Unknown History release (Depakote) loratadine 10 mg tablet 10 mg PO DAILY 05/19/25 05/19/25 Unknown History (Allerclear) tramadol 50 mg tablet mg 05/19/25 Unknown History Allergies Allergy/AdvReac Type Severity Reaction Status Date / Time bee venom protein (honey Allergy Unknown unknown Verified 09/21/25 09:01 bee) (bees) [facility] Past Medical History Medical History (Updated 09/21/25 @ 00:00 by Terry Koenig) Muscle weakness (generalized) Spinal stenosis, lumbar region without neurogenic claudication Polyosteoarthritis, unspecified Constipation, unspecified Diverticulosis of large intestine without perforation or abscess without bleeding Hyperlipidemia UTI symptoms Post-nasal drip History of carotid stenosis Encounter to establish care Hyperglycemia Screening for metabolic disorder Carotid bruit Family History Family History Mother Dementia Father Cerebrovascular accident Social History Social History (Updated 09/20/25 @ 06:36 by Danette Plummer MD) Social History: Facility documentation: Full Code; POLST signed 08/19/24 lists Full Code - Yes CPR, Full treatment Smoking status: Never smoker Alcohol intake: never Substance use: never Substance use type: does not use Lack of Transportation: No Lack of Food: Never True Current Housing: I Have Housing Concerned About Future Housing: No Difficulty Paying Gas/Electric Bills: No Difficulty Paying for Meds: No Currently Unemployed: No Education: Master's Degree or Higher Difficulty w/ Childcare or Family Care: No Additional living arrangements comments: [facility] concerns: No Exam Narrative: GENERAL: Well-appearing, well-nourished, and in no acute distress. HEAD: Normocephalic, atraumatic. No hematoma. EYES: Non injected, non icteric ENT: Nares clear, no rhinorrhea or epistaxis. Gross auditory acuity intact. NECK: Supple. No meningismus. CHEST: Speaking in full sentences. No respiratory distress. HEART: Regular rate and rhythm. . ABDOMEN: Soft, nondistended. No rigidity or guarding. Not peritoneal. no tenderness to palpation. EXTREMITIES: Moves extremities x4. No obvious bony deformities. Pelvis: Stable to compression. SKIN: Warm, dry, no rash. NEURO: No focal deficits. Alert and oriented to self. Answering simple questions. Following commands. Normal speech without aphasia or dysarthria. PSYCH: Congruent mood and affect. Course Vital Signs Vital signs: Vital Signs Temperature 98.5 F 09/20/25 05:48 Pulse Rate 94 09/20/25 05:48 Respiratory Rate 16 09/20/25 05:48 Blood Pressure 134/58 L 09/20/25 05:48 Pulse Oximetry 97 09/20/25 05:48 Oxygen Delivery Room Air 09/20/25 05:48 Temperature 98.5 F 09/20/25 05:48 Pulse Rate 94 09/20/25 05:48 Respiratory Rate 16 09/20/25 05:48 Blood Pressure 134/58 L 09/20/25 05:48 Pulse Oximetry 97 09/20/25 05:48 Oxygen Delivery Room Air 09/20/25 05:48 MDM MDM Narrative Medical decision making narrative: Patient presents after report of suspected glf. Found on the floor in her unit at local facility. In the emergency department she is afebrile with vital signs notable for very mildly low diastolic blood pressure however acceptable mean arterial pressure. Not on anticoagulation. Family report she slid from bed, they witnessed on camera. They had requested patient not be sent to the ed but facility sent anyways. Patient's only complaint of pain is right shoulder which is same injury/complaint as previous per sons. Offered Xray imaging for this and ct imaging for brain/C spine but patient's sons decline. They would prefer to transport her back to facility. She is otherwise neurovascularly intact and appears at her baseline which is A&O x1. Differential Diagnosis Differential Diagnosis: intracranial hemorrhage; fracture/dislocation Discharge Plan Discharge Clinical Impression: Fall from bed Patient Disposition: NH [facility]/Asst Living Condition: Stable Instructions: Antibiotic Form, Fall Prevention for Older Adults (ED) Additional Instructions: Acetaminophen/Tylenol (maximum 4000 mg per day) is safe to take with NSAIDs (ibuprofen/Motrin) for pain relief. Either or both can be offered to the patient over the next few days as needed for pain. Follow-up with primary care physician. Return to the emergency department with any new or worsening symptoms. Patient Language: Sinhala Prescriptions: No Action divalproex [Depakote] 250 mg tablet,delayed release (DR/EC) 250 mg PO Q12H loratadine [Allerclear] 10 mg tablet 10 mg PO DAILY tramadol 50 mg tablet acetaminophen 650 mg PO PRN PRN (Reason: Pain (Scale Score 1-3)) polyethylene glycol 3350 [Miralax] 17 gram Powder In Packet 17 g PO QAM PRN (Reason: Constipation) Qty: 14 0RF atorvastatin 10 mg tablet 10 mg PO QHS Qty: 90 1RF Follow-up/Referrals: Duc Ackerman MD [Physician, Family Practice] Referral Note: listed in facility documentation Fe Rodriguez, HAND MITER OPERATOR, FACILITIES ENGINEERING MANAGER-C [Advanced Practice Nurse, Internal Medicine] Stand Alone Forms: Long-Term Discharge Time of Disposition: 06:37
== END 2025-09-20 06:59 ==
PROVIDERS: Emergency Provider Student in an Organized Health Care Education/Training Program
DX: Z04.3 Encounter for examination and observation following other accident (principal); E78.5 Hyperlipidemia, unspecified; M19.90 Unspecified osteoarthritis, unspecified site; W06.XXXA Fall from bed, initial encounter
CPT/HCPCS: 99281

== ENCOUNTER 2025-09-21 08:53 | Emergency (ER) | payer MEDICARE, SELFPAY ==
--- NOTE | ~2025-09-21 | CT_ITS ---
CT HEAD NON-CONTRAST CT C-SPINE Clinical History: head injury Comparison: Exams 05/19/2025 Technique: Unenhanced axial images skull base to vertex. Coronal, sagittal reformats. Axial images thoracic inlet to skull base. Sagittal and coronal reformats. CT images acquired with automatic exposure control for dose reduction DLP: 757 mGy-cm Findings: Head: Age-related atrophy. Chronic white matter microvascular ischemic changes. Sulci, ventricles: Unremarkable. No intracerebral hemorrhage. No evidence acute territorial infarct. No mass effect, midline shift, intra-/extra-axial fluid collection. Bony calvarium intact. Visualized paranasal sinuses: Scattered mucosal thickening. Mastoid air cells: Clear. C-spine: No acute fracture Grade 1 anterolisthesis C2 on 3, C3 on 4. Straightening of normal cervical lordosis. Moderate multilevel degenerative changes, with disc disease. Prevertebral soft tissues within normal limits. Visualized lung apices: Scarring. Visualized thyroid: Unremarkable. No enlarged cervical nodes. IMPRESSION: HEAD: 1. No acute intracranial findings. C-SPINE: 1. No acute fracture. Reviewed, dictated and finalized at location R. R CLERK IMPRESSION: HEAD: 1. No acute intracranial findings. C-SPINE: 1. No acute fracture.
[2025-09-21 08:53] VITALS: BP 157/62; PULSE 92; RESP 16; TEMP 37.3; O2SAT 95
--- OUTSIDE RECORDS SUMMARY | 2025-09-21 09:20 | XMS_ITS | Patient Health Record ---
Author Organization [facility] Address [address] [place] [id number] Care Team Providers Care Armature Winder Repair Name Role Phone MRS. Christine Rayo Primary Care Provider DR. BEBA BROWN Unavailable [phone] MATIAS DOUGLAS Unavailable [phone] Liliam Guzmán Unavailable [phone] Liat Milner Unavailable [phone] Keysha Borges Unavailable [phone] Allergies Allergen (clinical drug ingredient) Drug/Non Drug Allergy documented on EMR Reaction Allergy Type Onset Date Status bee pollen Bee Pollen Unknown Drug Allergy Activ e Results Component Value Reference Range Notes Comp. Metabolic Panel (14) Reviewed date:07/30/2025 03:12:34 PM Interpretation: Performing Lab: Notes/Report: Calcium, Serum 9.0 Glucose, Serum 111 BUN 14 Protein, Total, Serum 6.4 Albumin, Serum 4.2 Bilirubin, Total 0.3 Alkaline Phosphatase, S 75 AST (SGOT) 20 Potassium, Serum 4.62 Sodium, Serum 144.6 Chloride, Serum 106.8 Creatinine, Serum 1.03 ALT (SGPT) 14 Carbon Dioxide, Total 23 Vitamin D, 25-Hydroxy Reviewed date:08/18/2025 03:54:15 PM Interpretation: Performing Lab: Notes/Report: CBC Reviewed date:08/18/2025 03:53:51 PM Interpretation: Performing Lab: Notes/Report: Lipid Panel Reviewed date:08/18/2025 03:53:30 PM Interpretation: Performing Lab: Notes/Report: Free Valproic Acid (Depakote ) Reviewed date:08/18/2025 03:53:09 PM Interpretation: Performing Lab: Notes/Report: Vitamin D, 25-Hydroxy Reviewed date:07/30/2025 03:12:34 PM Interpretation: Performing Lab: Notes/Report: Vitamin D, 25-Hydroxy 34.20 Reason For Referral Reason Dementia Behaviors Diagnosis 1 Dementia with behavi oral disturbance (F03.918) Referral Organization [facility] Referring Provider First Name Liliam Referring Provider Last Name [facility] Referred Organization [facility] [address] Referred Address [address] [place] [id number], Referred Provider Specialty Psychiatry Referral Priority Routine Medications Medication SIG (Take, Route, Frequency, Duration) Notes Start Date End Date Status Polyethylene Glycol 3350 17 GM/SCOOP Powder 1 scoop mixed with 8 ounces of fluid Orally Once a day As needed Active Acetaminophen 325 MG Tablet 2 tablet as needed Orally every 6 hrs Active traMADol HCl 50 MG Tablet 1 tablet as ne eded Orally every 6 hours Active Atorvastatin Calcium 10 MG Tablet 1 tablet Orally Once a day Active Vitamin D (Ergocalciferol) 1.25 MG (15233 UT) Capsule 1 capsule Orally 06/02/2025 Active busPIRone HCl 5 MG Tablet 1 tablet Orall y Twice a day 06/12/2025 Active Vitamin D (Cholecalciferol) 25 MCG (1000 UT) Capsule 1 capsule Orally Once a day; Duration: 30 days 07/28/2025 Active Divalproex Sodium ER 250 MG Tablet Extended Release 24 Hour 1 tablet Orally twice a day Active Loratadine 10 MG Tablet 1 tablet Orally Once a day Active Social History Tobacco Use: Social History Observation Description Date Details (start date - stop date) Never Smoker NA - NA Social History Drug/Alcohol: Social Info Question Answer Notes Drugs Have you used drugs other than those for medical reasons in the past 12 months? No AUDIT-C (Standard) Did you have a drink containing alcohol in the past year? No Points 0 Interpretation Negative Tobacco Use: Social Info Question Answer Notes Tobacco Control (Standard) Tobacco use: Nonsmoker Section Notes: never smoker never smoker never smoker never smoker never smoker never smoker never smoker Problems Problem Type SNOMED Code ICD Code Onset Dates Problem Status W/U Status Risk Notes Problem Vitamin D deficiency (01573156) Vitamin D deficiency, unspecified (E55.9) Active confirmed Problem Primary generalised osteoarthritis (299910270) Primary generalized (osteo)arthritis (M15.0) Active confirmed Problem Walking disability (970647220) Difficulty in walking, not elsewhere classified (R26.2) Active confirmed Problem Amnesia (64084498) Other amnesia (R41.3) Active confirmed Problem Hyperlipidemia (79361332) Hyperlipidemia (E78.5) Active confirmed Problem Dementia with mood disturbance, unspecified dementia severity, unspecified dementia type (F03.93) Active confirmed Problem Dementia with behavioral disturbance (3238186821301) Dementia with behavioral disturbance (F03.918) Active confirmed Problem Dementia (02750578) Chronic dementia (F03.90) Active confirmed Vital Signs Heart Rate 71 /min 04/15/2025 Temperature 98.6 degrees Fahrenheit 04/15/2025 Respiratory Rate 16 /min 04/15/2025 Oximetry 97 % 04/15/2025 Blood pressure diastolic 56 mm Hg 04/15/2025 Blood pressure systolic 120 mm Hg 04/15/2025 Encounters Encounter Location Date Provider Diagnosis [facility] [address] [place] [address] 10/01/2024 Liliam Pendegraft Dementia with mood disturbance, unspecified dementia severity, unspecified dementia type F03.[address] [facility] [address] [place] [address] 12/31/2024 Liliam Pendegraft Hyperlipidemia E78.5 ; Chronic dementia F03.90 and Primary generalized (osteo)arthritis M15.[address] [facility] [address] [place] [address] 04/15/2025 Liat Milner Dementia with mood disturbance, unspecified dementia severity, unspecified dementia type F03.93 ; Primary generalized (osteo)arthritis M15.[address] [facility] [address] [place] [address] 06/12/2025 MATIAS MISAEL Dementia with behavioral disturbance F03.918 ; Status post fall Z91.81 and Generalized weakness R53.[address] [facility] [address] [place] [address] 07/10/2025 Christine Rayo Dementia with mood disturbance, unspecified dementia severity, unspecified dementia type F03.93 ; Primary generalized (osteo)arthritis M15.0 ; Hyperlipidemia E78.5 ; Low back pain, unspecified M54.50 and Vitamin D deficiency, unspecified E55.[address] [place] [address] [place] [address] 12/26/[address] [place] [address] [place] [address] 01/23/[address] [facility] [place] [address] [place] [address] 02/03/[address] [place] [address] [place] [address] 02/13/[address] [place] [address] [place], [facility] 04/08/[address] [facility] [place] [address] [place], [facility] 04/08/[address] [place] [address] [place] [address] 04/14/[address] [place] [address] [place], [facility] 06/02/[address] [place] [address] [place] [address] 06/11/[address] [place] [address] [place], [facility] 07/09/2025 Christine Rayo Assessments Encounter Date Diagnosis (ICD Code) Assessment Notes Treatment Notes Treatment Clinical Notes Section Notes 10/01/2024 Dementia with mood disturbance, unspecified dementia severity, unspecified dementia type (ICD-10 - F03.93) chronic/progress carlitos increase VPA to 250mg bid notify provider if symptoms persist or worsen 12/31/2024 Hyperlipidemia (ICD-10 - E78.5) chronic/stable Continue atorvastatin 04/15/2025 Primary generalized (osteo)arthritis (ICD-10 - M15.0) The patient denies any pain at this time. She is not currently on any medications regularly. The patient does have Tylenol and tramadols as needed. 04/15/2025 Dementia with mood disturbance, unspecified dementia severity, unspecified dementia type (ICD-10 - F03.93) Alert and oriented x1, pleasantly confused, and is able tomake needs known. The patient is on Depakotefor behaviors. Family would like the medicationto be increased. Order given to draw Depakote level on next lab day. 06/12/2025 Status post fall (ICD-10 - Z91.81) Patient seen in the ED on 05/19/2025, workup negative. Patient was discharged with no new orders. Continue to provide support and assistance with ADLs. 06/12/2025 Dementia with behavioral disturbance (ICD-10 - F03.918) Alert and oriented x1, pleasantly confused, and is able to make needs known. The patient is on Depakote for behaviors. Family would like the medication to be increased. 07/10/2025 Primary generalized (osteo)arthritis (ICD-10 - M15.0) The patient denies any pain at this time. She is not currently on any medications regularly. The patient does have Tylenol and tramadols as needed. 07/10/2025 Dementia with mood disturbance, unspecified dementia severity, unspecified dementia type (ICD-10 - F03.93) Alert and oriented x1, pleasantly confused, and is able tomake needs known. The patient is on Depakotefor behaviors. Family would like the medicationto be increased. 07/10/2025 Hyperlipidemia (ICD-10 - E78.5) No labs on file. Currently on a statin. 06/12/2025 Generalized weakness (ICD-10 - R53.1) Patient does have history of falls without injury. Staff providing support and assistance with ADLs when patient will allow. She can become agitated and aggressive with assistance at times. Continue current treatment plan and monitoring. 04/15/2025 Hyperlipidemia (ICD-10 - E78.5) No labs on file. Currently on a statin. Order given to draw lipid panel on next lab day. 12/31/2024 Chronic dementia (ICD-10 - F03.90) chronic/progress carlitos VPA for mood stablizer 12/31/2024 Primary generalized (osteo)arthritis (ICD-10 - M15.0) chronic/stable continue tramadol tylenol 07/10/2025 Low back pain, unspecified (ICD-10 - M54.50) currently treated with tylenol 07/10/2025 Vitamin D deficiency, unspecified (ICD-10 - E55.9) noted on most recent labs, started on vitamin D 10/01/2024 Other f/u as needed 12/31/2024 Other f/u at next routine visit unless needed sooner obtain BMP 04/15/2025 Other Continue current treatment plan.Staff to continue to monitor and report any changes.Patient education provided and questions/concer ns addressed.Follow up in three months unless necessary sooner. Draw a CBC, CMP, and vitamin D level on next lab day. 06/12/2025 Other Continue curren t treatment plan.Staff to continue to monitor and report any changes.Patient education provided and questions/concer ns addressed.Follow up in three months unless necessary sooner. 07/10/2025 Other Continue curren t treatment plan.Staff to continue to monitor and report any changes.Patient education provided and questions/concer ns addressed.Follow up in three months unless necessary sooner. Plan Of Treatment No Information Insurance Providers Payer Name Payer Address Payer Phone Subscriber Number Group Number Insured Name Patient Relationship to Insured Coverage Start Date Coverage End Date [employer] of [place] [address] [facility] [place] [id number] Rosa Maria LEIGH Self - patient is the insured Medical (General) History Medical History History ICD Code Unspecified fall, initial encounter W19. XXXA Low back pain, unspecified M54.50 Difficulty in walking, not elsewhere cla ssified R26.2 Other amnesia R41.3 Hyperlipidemia, unspecified E78.5 Surgical History Surgery Date(Month/Year) NO PREVIOUS SURGERIES
--- NOTE | 2025-09-21 09:44 | ED.GENADULT ---
HPI - General Adult General Chief complaint: Fall Stated complaint: fall Time Seen by Provider: 09/21/25 09:03 History of Present Illness HPI narrative: 80-year-old female present to the emergency department for evaluation for right lateral neck pain. Patient reportedly had a fall this morning. Patient has Alzheimer's dementia at baseline and patient has no recollection of the fall. Patient does complain of some right-sided posterior neck pain. Patient has no external signs of injury. Patient denies any other pain or injury. Patient is resting comfortably in a C-collar upon arrival to the emergency department by EMS Related Data Home Medications ?Medication ?Instructions ?Recorded ?Confirmed ?Last Taken ?Type acetaminophen 650 mg PO PRN PRN Pain (Scale 08/14/24 05/19/25 Unknown History Score 1-3) divalproex 250 mg tablet,delayed 250 mg PO Q12H 05/19/25 05/19/25 Unknown History release (Depakote) loratadine 10 mg tablet 10 mg PO DAILY 05/19/25 05/19/25 Unknown History (Allerclear) tramadol 50 mg tablet mg 05/19/25 Unknown History Allergies Allergy/AdvReac Type Severity Reaction Status Date / Time bee venom protein (honey Allergy Unknown unknown Verified 09/21/25 09:01 bee) (bees) Review of Systems Review of Systems: All systems reviewed & are unremarkable except as noted in HPI and below PMFSH Past Medical History Medical History (Updated 09/21/25 @ 10:27 by Trenton Valero MD) Muscle weakness (generalized) Spinal stenosis, lumbar region without neurogenic claudication Polyosteoarthritis, unspecified Constipation, unspecified Diverticulosis of large intestine without perforation or abscess without bleeding Hyperlipidemia UTI symptoms Post-nasal drip History of carotid stenosis Encounter to establish care Hyperglycemia Screening for metabolic disorder Carotid bruit Family History Family History Mother Dementia Father Cerebrovascular accident Social History Social History (Updated 09/20/25 @ 06:36 by Danette Plummer MD) Social History: Facility documentation: Full Code; POLST signed 08/19/24 lists Full Code - Yes CPR, Full treatment Smoking status: Never smoker Alcohol intake: never Substance use: never Substance use type: does not use Lack of Transportation: No Lack of Food: Never True Current Housing: I Have Housing Concerned About Future Housing: No Difficulty Paying Gas/Electric Bills: No Difficulty Paying for Meds: No Currently Unemployed: No Education: Master's Degree or Higher Difficulty w/ Childcare or Family Care: No Additional living arrangements comments: [facility] concerns: No Exam Narrative: APPEARANCE: Well appearing, no pain, no distress, well-nourished. HEAD: normocephalic, atraumatic. EYES: PERRLA/EOMI, conjunctivae clear. NOSE: Normal no drainage EARS:TMS clear with good light reflex. THROAT: Pharynx clear, no exudate. NECK: Right-sided posterior neck pain with tenderness to palpation, patient in C-collar RESPIRATORY: Airway patent, respirations nonlabored. Clear to auscultation bilaterally, no rales, rhonchi, wheezing. CARDIOVASCULAR: Regular rate and rhythm without murmurs rubs or gallops. ABDOMINAL: Soft, nontender, nondistended, normal bowel sounds MUSCULOSKELETAL: Moves all extremities. Strength/ROM intact, No edema, No calf tenderness. NEURO: Alert. Cranial nerves II through XII intact. Good gait. Good coordination SKIN: Warm, dry. Normal Color Course Vital Signs Vital signs: Vital Signs Temperature 99.2 F 09/21/25 08:53 Pulse Rate 92 09/21/25 08:53 Respiratory Rate 16 09/21/25 08:53 Blood Pressure 157/62 H 09/21/25 08:53 Pulse Oximetry 95 09/21/25 08:53 Oxygen Delivery Room Air 09/21/25 08:53 Temperature 99.2 F 09/21/25 08:53 Pulse Rate 92 09/21/25 08:53 Respiratory Rate 16 09/21/25 08:53 Blood Pressure 157/62 H 09/21/25 08:53 Pulse Oximetry 95 09/21/25 08:53 Oxygen Delivery Room Air 09/21/25 08:53 [facility] MDM Narrative Medical decision making narrative: 80-year-old female presenting to the emergency department for evaluation for head neck injury. Patient did report some posterior right-sided neck pain. Patient had no midline tenderness to palpation, no evidence of injury. Imaging was negative. Patient denies any other pain or injury. Patient was discharged back to her care facility. Differential Diagnosis Differential Diagnosis: Subarachnoid hemorrhage, subdural hematoma, cervical spine fracture, neck strain Imaging Data Radiologist's impression: ITS Impressions Cervical Spine CT 09/21/25 10:11 IMPRESSION: HEAD: 1. No acute intracranial findings. C-SPINE: 1. No acute fracture. Head CT 09/21/25 10:11 IMPRESSION: HEAD: 1. No acute intracranial findings. C-SPINE: 1. No acute fracture. Discharge Plan Discharge Clinical Impression: Head injury, Neck pain Patient Disposition: NH Nursing Home/Asst Living Condition: Stable Instructions: Antibiotic Form, Head Injury (ED) Additional Instructions: Have close follow-up with your primary care physician Patient Language: Filipino Prescriptions: No Action divalproex [Depakote] 250 mg tablet,delayed release (DR/EC) 250 mg PO Q12H loratadine [Allerclear] 10 mg tablet 10 mg PO DAILY tramadol 50 mg tablet acetaminophen 650 mg PO PRN PRN (Reason: Pain (Scale Score 1-3)) polyethylene glycol 3350 [Miralax] 17 gram Powder In Packet 17 g PO QAM PRN (Reason: Constipation) Qty: 14 0RF atorvastatin 10 mg tablet 10 mg PO QHS Qty: 90 1RF Follow-up/Referrals: PHYSICIAN,ACUTE CARE NURSING ASSISTANT [Primary Care Provider, Internal Medicine]
== END 2025-09-21 10:56 ==
PROVIDERS: Emergency Provider Emergency Medicine
DX: S09.90XA Unspecified injury of head, initial encounter (principal); M54.2 Cervicalgia; W19.XXXA Unspecified fall, initial encounter; G30.9 Alzheimer's disease, unspecified; F02.80 Dementia in other diseases classified elsewhere, unspecified severity, without behavioral disturbance, psychotic disturbance, mood disturbance, and anxiety; E78.5 Hyperlipidemia, unspecified
CPT/HCPCS: 70450; 72125; 99284